=== PATIENT | female | born 1960 | race Caucasian/White ===

== ENCOUNTER 2018-04-30 15:16 | Inpatient (IN) | payer BC ==
[~2018-04-30] VITALS: Ht 157.5 cm; Wt 78.0 kg
[2018-04-30] MEDS ORDERED: HYDROcodone/APAP 5/325MG 1 TAB TABLET PO ONE (15:45)
--- NOTE | 2018-04-30 16:05 | RAD ---
Three-view left knee dated 04/30/2018. No comparison available. Clinical data indication: Pain after injury. FINDINGS: 3 views of left knee show complete transverse fracture through the patella with approximately 3.2 cm distraction of the fracture fragments. Wavy appearance of the patellar tendon with some retraction of the quadriceps tendon. No apparent joint effusion. No intra-articular loose body. The distal femur and proximal tibia are intact. Mild tricompartmental degenerative change. Mild degenerative change of the proximal tibiofibular joint. IMPRESSION: 1. Complete transverse fracture through the mid aspect of the patella with 3.2 cm distraction of the fracture fragments. 2. Mild tricompartmental degenerative arthrosis. Electronically signed by: Cayetano Lott MD (04/30/2018 4:01 PM) [facility]
--- NOTE | 2018-04-30 16:28 | PHYS DOC ---
Past Medical History Past Medical History: Diabetes-Type II, Hypertension, Renal Disease Past Surgical History: Cholecystectomy, Hysterectomy Additional Past Surgical Histo: BACK, L knee patella fx Alcohol Use: None Drug Use: None Adult General Chief Complaint Chief Complaint: KNEE INJURY HPI HPI Patient is a 57 year old female who presents to the emergency room with complaints of left knee pain after she missed a step and fell approximately 30 minutes prior to arrival. Patient states she feels like her knee is broken. She denies any numbness, tingling, or weakness of the extremity. She states that it hurts if she bends her knee. He has not been able to bear weight on the affected extremity since the injury. Currently she reports her pain is 10 out of 10 if her knee is moved. Patient states that she previously fractured her left knee over 20 years ago. Review of Systems Review of Systems Constitutional: Denies fever or chills [] Musculoskeletal: Denies back pain reports left knee pain Integument: Denies rash or skin lesions [] Neurologic: Denies focal weakness or sensory changes [] Current Medications Current Medications Current Medications Medications (Trade) Dose Ordered Sig/Francis Start Time Stop Time Status Last Admin Dose Admin Acetaminophen/ Hydrocodone Bitart (Lortab 5/325) 1 tab 1X ONCE 04/30/18 15:45 04/30/18 15:46 DC 04/30/18 16:03 1 TAB Allergies Allergies Physical Exam Physical Exam Constitutional: Well developed, well nourished, mild distress, non-toxic appearance. [] HENT: Normocephalic, atraumatic, bilateral external ears normal, nose normal. [ ] Eyes: PERRLA, conjunctiva normal, no discharge. [] Lungs & Thorax: Respirations even and unlabored Skin: Warm, dry, no erythema, no rash. [] Extremities: No cyanosis, no clubbing; left patella tender to palpation with 2+ edema present, limited range of motion of the left knee due to pain and injury, palpable strong pedal and posterior tibial pulses and left lower extremity Neurologic: Alert and oriented X 3, normal motor function, normal sensory function, no focal deficits noted. [] Psychologic: Affect normal, judgement normal, mood normal. [] Current Patient Data Vital Signs Vital Signs Date Time Temp Pulse Resp B/P (MAP) Pulse Ox O2 Delivery O2 Flow Rate FiO2 04/30/18 15:33 98.1 85 20 168/77 (107) 99 Room Air 98.1 EKG EKG [] Radiology/Procedures Radiology/Procedures IMAGING REPORT Signed PATIENT: ADRIANA RODRIGUEZ ACCOUNT: [id number] : 1960 LOCATION: ER AGE: 57 SEX: F EXAM STATUS: PRE ER ORD. PHYSICIAN: SANGEETA ORTEGA APRN REASON: fall PROCEDURE: KNEE LEFT 3V Three-view left knee dated 04/30/2018. No comparison available. Clinical data indication: Pain after injury. FINDINGS: 3 views of left knee show complete transverse fracture through the patella with approximately 3.2 cm distraction of the fracture fragments. Wavy appearance of the patellar tendon with some retraction of the quadriceps tendon. No apparent joint effusion. No intra-articular loose body. The distal femur and proximal tibia are intact. Mild tricompartmental degenerative change. Mild degenerative change of the proximal tibiofibular joint. IMPRESSION: 1. Complete transverse fracture through the mid aspect of the patella with 3.2 cm distraction of the fracture fragments. 2. Mild tricompartmental degenerative arthrosis. Electronically signed by: Cayetano Lott MD (04/30/2018 4:01 PM) [facility] DICTATED and SIGNED BY: CAYETANO LOTT MD DATE: 04/30/18 1559 [] Course & Med Decision Making Course & Med Decision Making Pertinent Labs and Imaging studies reviewed. (See chart for details) Patient is a 57-year-old female who presented to the emergency room today with complaints of left knee pain after a fall at approximately 30 minutes prior to arrival. Her vital signs are stable. Patient was given hydrocodone for pain in the department. An x-ray of the left knee revealed a transverse fracture of the left patella. Dr. Zeng was contacted, will admit patient for surgical correction of the fracture. Dr. Bergman was contacted and the patient was admitted for left patella fracture. [] Dragon Disclaimer Dragon Disclaimer This electronic medical record was generated, in whole or in part, using a voice recognition dictation system. Departure Departure Referrals: UNKNOWN PCP NAME (PCP) Scripts Hydrocodone Bit/Acetaminophen (HYDROCODONE-APAP 7.5-325 ) 1 Each Tablet 1 TAB PO PRN Q4HRS PRN for PAIN MODERATE for 10 Days, #30 TAB Prov: CESARIO LAUREANO MD 05/02/18 SANGEETA ORTEGA APRN Apr 30, 2018 16:28
[2018-04-30] MEDS ORDERED: ONDANSETRON PF 4 MG/2 ML VIAL. IV PRN (17:15)
[2018-04-30 18:00] VITALS: BP 158/86
[2018-04-30] MEDS ORDERED: INSU200I4 SQ (18:22)
[2018-04-30] MEDS ORDERED: LISI-334 PO (18:22)
[2018-04-30] MEDS ORDERED: HYDR12.58 PO (18:22)
[2018-04-30] MEDS ORDERED: AMLO5TAB2 PO (18:22)
[2018-04-30] MEDS ORDERED: ATORVASTATIN CA80 MG PO (18:22)
[2018-04-30] MEDS ORDERED: LOPE2CAP88 PO (18:22)
[2018-04-30] MEDS ORDERED: METF500T5 PO (18:22)
[2018-04-30 19:51] VITALS: BP 154/54
--- NOTE | 2018-04-30 20:34 | HP ---
ADMIT DATE: 04/30/2018 CHIEF COMPLAINT: Fall with left knee pain. HISTORY OF PRESENT ILLNESS: The patient is a pleasant 57-year-old female who stepped off a concrete step. She missed a step and fell to her left knee. She struck her knee. It is now hurting badly, we x-rayed it. It is fractured. We have called Dr. Zeng. He plans to do surgery tomorrow. I discussed the case with the ER physician and the family as well. The patient is now being examined on orthopedics floor. PAST MEDICAL HISTORY: Previous patellar fracture of the same knee, diabetes, hypertension, hyperlipidemia, hysterectomy, chronic renal insufficiency, cholecystectomy, back surgeries. ALLERGIES: PENICILLIN. FAMILY HISTORY: Diabetes. SOCIAL HISTORY: She does not drink, smoke or take drugs. She lives in [place]. She is here visiting. She is trying to get custody of her grandson. She is supposed to be in court tomorrow. MEDICATIONS: Reviewed, please refer to the MRAD. REVIEW OF SYSTEMS: GENERAL: No history of weight change, weakness or fevers. SKIN: No bruising, hair changes or rashes. EYES: No blurred, double or loss of vision. NOSE AND THROAT: No history of nosebleeds, hoarseness or sore throat. HEART: No history of palpitations, chest pain or shortness of breath on exertion. LUNGS: Denies cough, hemoptysis, wheezing or shortness of breath. GASTROINTESTINAL: Denies changes in appetite, nausea, vomiting, diarrhea or constipation. GENITOURINARY: No history of frequency, urgency, hesitancy or nocturia. NEUROLOGIC: Denies history of numbness, tingling, tremor or weakness. PSYCHIATRIC: No history of panic, anxiety or depression. ENDOCRINE: No history of heat or cold intolerance, polyuria or polydipsia. EXTREMITIES: She complains of left leg pain. PHYSICAL EXAMINATION: VITAL SIGNS: Temperature afebrile, pulse 80, respirations 20, blood pressure 168/77, O2 sat 99% on room air. GENERAL: She is alert, cooperative, has multiple family members present. They are good support for her. HEART: Normal S1, S2. LUNGS: Clear to auscultation. ABDOMEN: Soft. EXTREMITIES: The left knee is in a brace. ENDOCRINE: No thyromegaly. LYMPHATICS: No cervical nodes. HEMATOPOIETIC: No bruising. LABORATORY DATA: Pending other than a glucose of . ASSESSMENT AND PLAN: Fall with left patellar fracture. The patient has been admitted. We will consult Orthopedics. Resume her home meds, p.r.n. narcotics, p.r.n. Zofran, IV fluids. Left knee brace. Await surgery tomorrow. Postoperatively, she is going to need aggressive physical therapy and occupational therapy. CASSIA JONES DO DR: GABBY/aneesh JOB#: [id number] / [id number]
[2018-04-30 23:00] VITALS: BP 180/69
[2018-05-01] MEDS ORDERED: INSULIN LISPRO 300 UNITS/3 ML INSULN.PEN. SQ ONE ×2 (00:15→19:45)
[2018-05-01] MEDS ORDERED: LOPERAMIDE 2 MG CAPSULE PO SCH (01:00)
[2018-05-01 03:00] VITALS: BP 154/76
[2018-05-01 07:00] VITALS: BP 181/76
[2018-05-01] MEDS ORDERED: IV RINGERS,LACTATED 1000ML 1,000 ML IV SCH (07:20)
[2018-05-01] MEDS ORDERED: LIDOCAINE 1% PF 2 ML VIAL. ID PRN (07:30)
[2018-05-01] MEDS ORDERED: HYDROmorphone 2 MG/ML VIAL IV PRN (07:30)
[2018-05-01] MEDS ORDERED: ONDANSETRON PF 4 MG/2 ML VIAL. IV PRN (07:30)
[2018-05-01] MEDS ORDERED: PROCHLORPERAZINE 10 MG/2 ML VIAL. IV PRN (07:30)
[2018-05-01] MEDS ORDERED: fentaNYL PF VIAL 100 MCG/2 ML VIAL IV PRN ×3 (07:30→14:30)
[2018-05-01] MEDS ORDERED: MORPHINE SULFATE 2 MG/ML VIAL. IV PRN ×2 (07:30→14:30)
[2018-05-01] MEDS ORDERED: metFORMIN 500 MG TABLET PO SCH (08:00)
[2018-05-01] MEDS: LISINOPRIL 20 MG TABLET PO SCH (08:19)
[2018-05-01] MEDS: amLODIPine BESYLATE 5 MG TABLET PO SCH (08:20)
[2018-05-01] MEDS: hydroCHLOROthiazide 12.5 MG CAPSULE PO SCH (08:22)
[2018-05-01] MEDS: HYDROcodone/APAP 5/325MG 1 TAB TABLET PO PRN ×2 (08:26→22:36)
--- NOTE | 2018-05-01 10:28 | PDOC2 ---
CONSULT Date of Consult Date of Consult DATE: 05/01/18 TIME: 10:12 Reason for Consult Reason for Consult: patella fracture Identification/Chief Complaint Chief Complaint left knee pain, patella fracture Source Source: Chart review, Patient History of Present Illness Reason for Visit: This 57-year-old woman normally lives in [place] but was visiting her sister in [place], and fell in her sister's garage yesterday. She landed directly on the patella, she knew it was broken based on the gap that formed. She was unable to walk. She was seen in the emergency room and admitted. She has a history of prior patella fracture 20-25 years ago which was treated nonoperatively. Ever since that remote injury she has had patella crepitus, some difficulty with stairs, but does not use a cane or a walker and is able to stand for long periods of time at work. 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 Her works for the [employer] in [place]. Her main complaint is of pain, inability to walk, and some cramping in the thigh muscle. Past Medical History Past Medical History Hypertension, diabetes, chronic kidney disease stage III, neuropathy. She has had type 2 diabetes for >10 years and is now on insulin including Tresiba. Neuropathy and poor balance likely related to the diabetes. Cardiovascular: HTN GI: Other (history of diarrhea which was worked up with the GI doctor but not able to be diagnosed. She still sees her GI doctor but the diarrhea has essentially resolved.) Renal/: Chronic renal insuff Endocrine: Diabetes Past Surgical History Past Surgical History Back surgery was 20 years ago, hysterectomy, cholecystectomy about 5 years ago, history of laser retinal surgery Past Surgical History: Cholecystectomy, Hysterectomy Family History Family History: Cancer, Diabetes Social History Social History She quit smoking 8 years ago. She quit alcohol about 10 years ago. She denied street drug use. She works for a [employer], and lives with her in [place]. Quit ALCOHOL: none Drugs: None Lives: with Family Current Medications Current Medications Current Medications Acetaminophen/ Hydrocodone Bitart (Lortab 5/325) 1 tab 1X ONCE PO Last administered on 04/30/18at 16:03; Start 04/30/18 at 15:45; Stop 04/30/18 at 15:46 ; Status DC Ondansetron HCl (Zofran) 4 mg PRN Q8HRS PRN IV NAUSEA/VOMITING; Start 04/30/18 at 17:15; Stop 05/01/18 at 17:14 Morphine Sulfate (Morphine Sulfate) 4 mg PRN Q2HR PRN IV PAIN; Start 04/30/18 at 17:15; Stop 05/01/18 at 17:14 Insulin Human Lispro (HumaLOG) 4 units ONCE ONCE SQ ; Start 05/01/18 at 00:15; Stop 05/01/18 at 00:16; Status DC Amlodipine Besylate (Norvasc) 5 mg DAILY PO Last administered on 05/01/18at 08: 20; Start 05/01/18 at 09:00 Lisinopril (Prinivil) 20 mg DAILY PO Last administered on 05/01/18at 08:19; Start 05/01/18 at 09:00 Atorvastatin Calcium (Lipitor) 80 mg HS PO ; Start 05/01/18 at 21:00 Hydrochlorothiazide (Microzide) 25 mg DAILY PO Last administered on 05/01/18at 08:22; Start 05/01/18 at 09:00 Insulin Glargine (Lantus) 30 units QHS SQ ; Start 05/01/18 at 21:00 Loperamide HCl (Imodium) 2 mg PRN Q6HRS PO ; Start 05/01/18 at 01:00 Metformin HCl (Glucophage) 500 mg BIDWMEALS PO ; Start 05/01/18 at 08:00 Acetaminophen/ Hydrocodone Bitart (Lortab 5/325) 1 tab PRN Q4HRS PRN PO PAIN Last administered on 05/01/18at 08:26; Start 05/01/18 at 01:00 Ondansetron HCl (Zofran) 4 mg PRN Q6HRS PRN IV NAUSEA/VOMITING; Start 05/01/18 at 07:30; Stop 05/02/18 at 07:29 Fentanyl Citrate (Fentanyl 2ml Vial) 25 mcg PRN Q5MIN PRN IV MILD PAIN; Start 05/01/18 at 07:30; Stop 05/02/18 at 07:29 Fentanyl Citrate (Fentanyl 2ml Vial) 50 mcg PRN Q5MIN PRN IV MODERATE TO SEVERE PAIN; Start 05/01/18 at 07:30; Stop 05/02/18 at 07:29 Morphine Sulfate (Morphine Sulfate) 1 mg PRN Q10MIN PRN IV SEVERE PAIN; Start 05/01/18 at 07:30; Stop 05/02/18 at 07:29 Ringer's Solution 1,000 ml @ 30 mls/hr Q24H IV ; Start 05/01/18 at 07:20; Stop 05/01/18 at 19:19 Lidocaine HCl (Xylocaine-Mpf 1% 2ml Vial) 2 ml PRN 1X PRN ID PRIOR TO IV START ; Start 05/01/18 at 07:30; Stop 05/02/18 at 07:29 Hydromorphone HCl (Dilaudid) 0.5 mg PRN Q10MIN PRN IV SEV PAIN, Second choice; Start 05/01/18 at 07:30; Stop 05/02/18 at 07:29 Prochlorperazine Edisylate (Compazine) 5 mg PACU PRN PRN IV NAUSEA, MRX1; Start 05/01/18 at 07:30; Stop 05/02/18 at 07:29 Active Scripts Active Reported Imodium A-D (Loperamide HCl) 2 Mg Capsule 2 Mg PO PRN Q6HRS Tresiba Flextouch U-200 (Insulin Degludec) 200 Unit/1 Ml Insuln.pen 30 Unit SQ HS Lisinopril 20 Mg Tablet 1 Tab PO DAILY Metformin Hcl 500 Mg Tablet 500 Mg PO BIDWMEALS Atorvastatin Calcium 80 Mg Tablet 1 Tab PO DAILY Amlodipine Besylate 5 Mg Tablet 5 Mg PO DAILY Hydrochlorothiazide Tablet (Hydrochlorothiazide) 12.5 Mg Tablet 2 Tab PO DAILY Allergies Allergies: Coded Allergies: Penicillins (Verified Allergy, Severe, throat closes, 04/30/18) ROS General: No: Night Sweats, Fatigue, Malaise PSYCHOLOGICAL ROS: No: Anxiety Eyes: Yes Other (laser retina surgery) HEENT: No: Heacaches Hematological and Lymphatic: No: Blood Clots Respiratory: No: Cough, Shortness of breath Cardiovascular: No Chest Pain Gastrointestinal: Yes Diarrhea Genitourinary: No Dysuria Musculoskeletal: Yes Gait Disturbance Neurological: No Bowel/Bladder ControlChng Skin: No Skin Lesion Changes Physical Exam General: Alert, Cooperative HEENT: Atraumatic Lungs: Normal air movement Heart: Regular rate Abdomen: Soft Extremities: No edema, Other (palpable defect left patella. Small abrasion, very superficial, over the patella, skin intact otherwise over the fracture. Calf is soft and nontender. Foot/ankle neurovascular function is normal.) Neuro: Normal speech, Sensation intact (she reports slightly decreased sensation due to neuropathy but no change after the fall, she is at her baseline sensation.) MUSCULOSKELETAL: Abnormal exam of left (knee as above. Trace effusion. Inability to extend the knee. Palpable defect at the patella. The right lower extremity and bilateral upper extremities show normal alignment, sensation, without crepitus or tenderness or deformity. Sensation and motor function normal distally in all 4 extremities, except for slight decreased light touch sensation bilateral feet due to neuropathy.) Vitals VITALS Vital Signs Date Time Temp Pulse Resp B/P (MAP) Pulse Ox O2 Delivery O2 Flow Rate FiO2 05/01/18 08:26 Room Air 05/01/18 08:20 84 181/76 05/01/18 07:00 98.4 18 96 98.4 Labs Labs Laboratory Tests Test 04/30/18 18:11 04/30/18 20:44 05/01/18 07:33 Glucose (Fingerstick) 217 mg/dL (70-99) 295 mg/dL (70-99) 195 mg/dL (70-99) Laboratory Tests Test 04/30/18 18:11 04/30/18 20:44 05/01/18 07:33 Glucose (Fingerstick) 217 mg/dL (70-99) 295 mg/dL (70-99) 195 mg/dL (70-99) Images Images Report reviewed, images independently reviewed. Displaced left patella fracture. Mild degenerative changes. Horizontal fracture. I don't see evidence of the old fracture. Accession No. : [id number] Patient Name / ID : WING WRIGHT / [id number] Exam Date : 04/30/2018 15:38:11 ( Approved ) Study Comment : Sex / Age : F / 57Y Creator : Dictator : Director Of Reservations : Gifts Officer : CAYETANO LOTT Approver2 : Report Date : 04/30/2018 15:59:00 My Comment : [facility] [address] [place] [address] IMAGING REPORT Signed PATIENT: ADRIANA RODRIGUEZ ACCOUNT: [id number] : 1960 LOCATION: ER AGE: 57 SEX: F EXAM STATUS: PRE ER ORD. PHYSICIAN: SANGEETA ORTEGA APRN REASON: fall PROCEDURE: KNEE LEFT 3V Three-view left knee dated 04/30/2018. No comparison available. Clinical data indication: Pain after injury. FINDINGS: 3 views of left knee show complete transverse fracture through the patella with approximately 3.2 cm distraction of the fracture fragments. Wavy appearance of the patellar tendon with some retraction of the quadriceps tendon. No apparent joint effusion. No intra-articular loose body. The distal femur and proximal tibia are intact. Mild tricompartmental degenerative change. Mild degenerative change of the proximal tibiofibular joint. IMPRESSION: 1. Complete transverse fracture through the mid aspect of the patella with 3.2 cm distraction of the fracture fragments. 2. Mild tricompartmental degenerative arthrosis. Electronically signed by: Cayetano Lott MD (04/30/2018 4:01 PM) [facility] DICTATED and SIGNED BY: CAYETANO LOTT MD DATE: 04/30/18 1559 Assessment/Plan Assessment/Plan I recommended open treatment with internal fixation of the patella fracture. We talked about potential risks of that. Nonoperative treatment for this is unlikely to give a satisfactory result, and I explained that to the patient and her sisters. We discussed the potential risks of displacement of the fracture, need for hardware removal, bleeding, infection, scarring, or blood clots. She has multiple risks of blood clots due to fracture, bracing, immobility, surgery , and travel. She plans to return to [place] tomorrow. I will recommend DVT prophylaxis, probably 1 aspirin twice a day, despite her CKD. I will also prescribe a dose of Lovenox tomorrow before she leaves the hospital, so she is further protected during her airline flight tomorrow. She reports some metal sensitivity, and we will use titanium screws. I spoke to her about augmentation fixation using #5 FiberWire Krakw suture in the distal quadriceps tendon, attached to a cortical screws and the tibia for additional fixation. She stated understanding of the risks benefits and alternatives of surgery and desires to proceed. MARIBEL GAMBINO MD May 01, 2018 10:28
[2018-05-01] MEDS ORDERED: MIDAZOLAM HCL/PF 2 MG/2 ML VIAL. ONE (11:04)
[2018-05-01] MEDS ORDERED: fentaNYL PF VIAL 250 MCG/5 ML VIAL ONE (11:04)
[2018-05-01] MEDS ORDERED: PROPOFOL 20 ML IV ONE (11:04)
[2018-05-01] MEDS ORDERED: LIDOCAINE 2% PF Vial for OR 5 ML VIAL. ONE (11:04)
[2018-05-01] MEDS ORDERED: BUPIVACAINE-EPI 0.25%-1:200000 50 ML VIAL. ONE (11:08)
--- NOTE | 2018-05-01 12:25 | PDOC ---
PROGRESS NOTES History of Present Illness History of Present Illness ASSESSMENT AND PLAN: ACUTE left patellar fracture. OBESITY admitted. consult Orthopedics. p.r.n. narcotics, p.r.n. Zofran, IV fluids. Left knee brace. Postoperatively, , physical therapy and occupational therapy. Operative Note Date of Procedure: May 01, 2018 Pre-Op Diagnosis: Displaced transverse fracture of left patella, initial encounter for closed fracture S82.032A Post-Op Diagnosis: Same Procedure: Open treatment of patellar fracture with internal fixation, and cerclage variant suture augmentation Surgeon: Harvey Zeng MD Spinning Mule Tender: Quiana Ragland PA-C Anesthesia: General EBL: 100 mL Vitals Vitals Vital Signs Date Time Temp Pulse Resp B/P (MAP) Pulse Ox O2 Delivery O2 Flow Rate FiO2 05/01/18 11:40 98.4 84 15 171/76 96 Room Air 98.4 Physical Exam General: Alert, Oriented X3, Cooperative, moderate distress Heart: Regular rate, Normal S1, Normal S2 Lungs: Clear Abdomen: Soft Extremities: No cyanosis, No edema, Other (palpable defect left patella. Small abrasion, very superficial, over the patella, skin intact otherwise over the fracture. Calf is soft and nontender. Foot/ankle neurovascular function is normal.) Skin: No significant lesion Labs LABS Laboratory Tests Test 04/30/18 18:11 04/30/18 20:44 05/01/18 07:33 05/01/18 11:20 Glucose (Fingerstick) 217 mg/dL (70-99) 295 mg/dL (70-99) 195 mg/dL (70-99) 177 mg/dL (70-99) 25-Hydroxy Vitamin D Total 18.9 ng/mL (30-100) Comment Review of Relevant I have reviewed the following items montrell (where applicable) has been applied. Labs Laboratory Tests Test 04/30/18 18:11 04/30/18 20:44 05/01/18 07:33 05/01/18 11:20 Glucose (Fingerstick) 217 mg/dL (70-99) 295 mg/dL (70-99) 195 mg/dL (70-99) 177 mg/dL (70-99) 25-Hydroxy Vitamin D Total 18.9 ng/mL (30-100) Laboratory Tests Test 04/30/18 18:11 04/30/18 20:44 05/01/18 07:33 05/01/18 11:20 Glucose (Fingerstick) 217 mg/dL (70-99) 295 mg/dL (70-99) 195 mg/dL (70-99) 177 mg/dL (70-99) 25-Hydroxy Vitamin D Total 18.9 ng/mL (30-100) Medications Current Medications Acetaminophen/ Hydrocodone Bitart (Lortab 5/325) 1 tab 1X ONCE PO Last administered on 04/30/18at 16:03; Start 04/30/18 at 15:45; Stop 04/30/18 at 15:46 ; Status DC Ondansetron HCl (Zofran) 4 mg PRN Q8HRS PRN IV NAUSEA/VOMITING; Start 04/30/18 at 17:15; Stop 05/01/18 at 17:14 Morphine Sulfate (Morphine Sulfate) 4 mg PRN Q2HR PRN IV PAIN; Start 04/30/18 at 17:15; Stop 05/01/18 at 17:14 Insulin Human Lispro (HumaLOG) 4 units ONCE ONCE SQ ; Start 05/01/18 at 00:15; Stop 05/01/18 at 00:16; Status DC Amlodipine Besylate (Norvasc) 5 mg DAILY PO Last administered on 05/01/18at 08: 20; Start 05/01/18 at 09:00 Lisinopril (Prinivil) 20 mg DAILY PO Last administered on 05/01/18at 08:19; Start 05/01/18 at 09:00 Atorvastatin Calcium (Lipitor) 80 mg HS PO ; Start 05/01/18 at 21:00 Hydrochlorothiazide (Microzide) 25 mg DAILY PO Last administered on 05/01/18at 08:22; Start 05/01/18 at 09:00 Insulin Glargine (Lantus) 30 units QHS SQ ; Start 05/01/18 at 21:00 Loperamide HCl (Imodium) 2 mg PRN Q6HRS PO ; Start 05/01/18 at 01:00 Metformin HCl (Glucophage) 500 mg BIDWMEALS PO ; Start 05/01/18 at 08:00 Acetaminophen/ Hydrocodone Bitart (Lortab 5/325) 1 tab PRN Q4HRS PRN PO PAIN Last administered on 05/01/18at 08:26; Start 05/01/18 at 01:00 Ondansetron HCl (Zofran) 4 mg PRN Q6HRS PRN IV NAUSEA/VOMITING; Start 05/01/18 at 07:30; Stop 05/02/18 at 07:29 Fentanyl Citrate (Fentanyl 2ml Vial) 25 mcg PRN Q5MIN PRN IV MILD PAIN; Start 05/01/18 at 07:30; Stop 05/02/18 at 07:29 Fentanyl Citrate (Fentanyl 2ml Vial) 50 mcg PRN Q5MIN PRN IV MODERATE TO SEVERE PAIN; Start 05/01/18 at 07:30; Stop 05/02/18 at 07:29 Morphine Sulfate (Morphine Sulfate) 1 mg PRN Q10MIN PRN IV SEVERE PAIN; Start 05/01/18 at 07:30; Stop 05/02/18 at 07:29 Ringer's Solution 1,000 ml @ 30 mls/hr Q24H IV Last administered on 05/01/18at 11:40; Start 05/01/18 at 07:20; Stop 05/01/18 at 19:19 Lidocaine HCl (Xylocaine-Mpf 1% 2ml Vial) 2 ml PRN 1X PRN ID PRIOR TO IV START ; Start 05/01/18 at 07:30; Stop 05/02/18 at 07:29 Hydromorphone HCl (Dilaudid) 0.5 mg PRN Q10MIN PRN IV SEV PAIN, Second choice; Start 05/01/18 at 07:30; Stop 05/02/18 at 07:29 Prochlorperazine Edisylate (Compazine) 5 mg PACU PRN PRN IV NAUSEA, MRX1; Start 05/01/18 at 07:30; Stop 05/02/18 at 07:29 Lidocaine HCl (Lidocaine Pf 2% Vial) 5 ml STK-MED ONCE .ROUTE ; Start 05/01/18 at 11:04; Stop 05/01/18 at 11:05; Status DC Propofol 20 ml @ As Directed STK-MED ONCE IV ; Start 05/01/18 at 11:04; Stop at 11:05; Status DC Fentanyl Citrate (Fentanyl 5ml Vial) 250 mcg STK-MED ONCE .ROUTE ; Start at 11:04; Stop 05/01/18 at 11:05; Status DC Midazolam HCl (Versed) 2 mg STK-MED ONCE .ROUTE ; Start 05/01/18 at 11:04; Stop 05/01/18 at 11:05; Status DC Bupivacaine HCl/ Epinephrine Bitart (Marcaine-Epi 0.25%-1:053651) 50 ml STK-MED ONCE .ROUTE ; Start 05/01/18 at 11:08; Stop 05/01/18 at 12:08; Status DC Active Scripts Active Reported Imodium A-D (Loperamide HCl) 2 Mg Capsule 2 Mg PO PRN Q6HRS Tresiba Flextouch U-200 (Insulin Degludec) 200 Unit/1 Ml Insuln.pen 30 Unit SQ HS Lisinopril 20 Mg Tablet 1 Tab PO DAILY Metformin Hcl 500 Mg Tablet 500 Mg PO BIDWMEALS Atorvastatin Calcium 80 Mg Tablet 1 Tab PO DAILY Amlodipine Besylate 5 Mg Tablet 5 Mg PO DAILY Hydrochlorothiazide Tablet (Hydrochlorothiazide) 12.5 Mg Tablet 2 Tab PO DAILY Vitals/I & O Vital Sign - Last 24 Hours 04/30/18 04/30/18 04/30/18 04/30/18 15:33 18:00 19:51 20:55 Temp 98.1 98.2 98.2 98.1 98.2 98.2 Pulse 85 85 82 Resp 20 16 18 B/P (MAP) 168/77 (107) 158/86 (110) 154/54 (87) Pulse Ox 99 99 95 O2 Delivery Room Air Room Air Room Air Room Air 04/30/18 05/01/18 05/01/18 05/01/18 23:00 03:00 07:00 08:00 Temp 98.8 98.3 98.4 98.8 98.3 98.4 Pulse 85 82 84 Resp 18 18 18 B/P (MAP) 180/69 (106) 154/76 (102) 181/76 (111) Pulse Ox 96 97 96 O2 Delivery Room Air Room Air Room Air Room Air 05/01/18 05/01/18 05/01/18 05/01/18 08:19 08:20 08:26 09:30 Pulse 84 84 B/P (MAP) 181/76 181/76 O2 Delivery Room Air Room Air 05/01/18 11:40 Temp 98.4 98.4 Pulse 84 Resp 15 B/P (MAP) 171/76 Pulse Ox 96 O2 Delivery Room Air Intake and Output 04/30/18 04/30/18 05/01/18 15:00 23:00 07:00 Intake Total 150 ml 0 ml Balance 150 ml 0 ml CESARIO LAUREANO MD May 01, 2018 12:25
[2018-05-01] MEDS ORDERED: CLINDAMYCIN 900MG PREMIX 50 ML IV ONE (12:52)
[2018-05-01 12:55] LABS: CALCIUM 8.4 mg/dL (8.5-10.1); CREATININE 1.8 mg/dL (0.6-1.0); GFR 28.8
[2018-05-01 12:58] LABS: BASO # 0.1 x10^3/uL (0.0-0.2); BASO % 1 % (0-3); EOS # 0.1 x10^3/uL (0.0-0.7); EOS % 1 % (0-3); HEMATOCRIT 27.5 % (36.0-47.0); HEMOGLOBIN 9.1 g/dL (12.0-15.5); LYMPH # 1.6 x10^3/uL (1.0-4.8); LYMPH % 17 % (24-48); MEAN CORPUSCULAR HEMOGLOBIN 30 pg (25-35); MEAN CORPUSCULAR HGB CONC 33 g/dL (31-37); MEAN CORPUSCULAR VOLUME 89 fL (79-100); MONO # 0.7 x10^3/uL (0.0-1.1); MONO % 7 % (0-9); NEUT # 6.7 x10^3uL (1.8-7.7); NEUT % 74 % (31-73); PLATELET COUNT 261 x10^3/uL (140-400); RED BLOOD COUNT 3.08 x10^6/uL (3.50-5.40); RED CELL DISTRIBUTION WIDTH 13.8 % (11.5-14.5)
[2018-05-01] MEDS ORDERED: ONDANSETRON PF 4 MG/2 ML VIAL. ONE (13:30)
[2018-05-01] MEDS ORDERED: DEXAMETHASONE SOD PHOS 20 MG/5 ML VIAL. ONE (13:30)
[2018-05-01] MEDS ORDERED: ePHEDrine PF IN SALINE 50 MG/5 ML DISP.SYRIN IV ONE (13:34)
[2018-05-01] MEDS ORDERED: oxyCODONE IR 5 MG TABLET PO PRN (14:30)
[2018-05-01] MEDS ORDERED: HYDROcodone/APAP 7.5/325MG 1 TAB TABLET PO PRN ×2 (14:30)
[2018-05-01] MEDS ORDERED: MORPHINE SULFATE 4 MG/ML VIAL. IV PRN (14:30)
[2018-05-01] MEDS ORDERED: POLYETHYLENE GLYCOL 3350 17 GM PACKET. PO PRN (14:30)
[2018-05-01] MEDS ORDERED: DEXTROSE 50% 25 GM / 50ML DISP.SYRIN. IV PRN ×2 (14:30→17:45)
--- NOTE | 2018-05-01 14:35 | PDOC4 ---
Operative Note Operative Note Date of Procedure: May 01, 2018 Pre-Op Diagnosis: Displaced transverse fracture of left patella, initial encounter for closed fracture S82.032A Post-Op Diagnosis: Same Procedure: Open treatment of patellar fracture with internal fixation, and cerclage variant suture augmentation Surgeon: Maribel Zeng MD Furnace Mason: Quiana Ragland PA-C Anesthesia: General EBL: 100 mL Specimens Obtained: none Complications: none Drains: none Tourniquet time: 40 minutes Findings: Displaced transverse patella fracture. Poor bone quality. Implants: 4.0 mm titanium cannulated screws with washers x2. 4.0 mm small fragment titanium screws with washers x2. #5 FiberWire suture. Indications for Procedure: The patient is a 57-year-old woman with closed displaced transverse patella fracture after a fall. The patient and I discussed the risks, benefits and alternatives of surgery. I recommended internal fixation. She has a reported sensitivity to metal or nickel, and she requested hypoallergenic fixation. I planned patella fracture repair using titanium 4.0 mm cannulated and small fragment titanium fixation. She and I discussed the potential risks of patella fracture surgery including malunion or nonunion, delayed healing, infection, blood clots, need for hardware removal, patellofemoral arthritis, pain, weakness, stiffness, or other potential surgical or anesthetic competitions. All her questions about surgery were answered and she desired to proceed. Written consent was obtained. Procedure in Detail: The patient was identified in the preoperative holding area. The correct left lower extremity was marked by me. The patient was taken to the operating room where general anesthesia was used. The patient was positioned supine on the operating table. Preoperative antibiotics were given intravenously. A timeout procedure was performed. A tourniquet was applied to the left lower limb. The limb was prepared in sterile fashion with surgical prep solution. Sterile drapes were applied. An Esmarch bandage was used to exsanguinate the limb and the tourniquet was inflated to 350 mmHg. Midline incision was used, and sharp dissection was used with a 10 blade scalpel. Bovie electrocautery was used for hemostasis. Transverse patella fracture was identified with displacement. There was abundant fracture hematoma. Fracture hematoma was cleared with curettes, rongeurs, and irrigation. There was no evidence of a prior fracture that she describes. The fracture was able to be reduced anatomically, by palpating the articular surface and reducing the two fragments with bone clamps. Quiana Ragland PA-C then held the fracture reduced, while I deployed the guidewires for the 4.0 mm cannulated titanium Synthes set. The large image intensifier was used. All of the images were interpreted intraoperatively by me. The guidewires were placed from inferior to superior, crossing the fracture site. Position of the wires was confirmed on the image intensifier. A measuring guide was used, and predrilling was performed of the outer cortex only. I then placed the partially threaded cannulated cancellous screws each with a washer, with adequate fixation and compression across the fracture site. Image intensifier views showed satisfactory reduction and fixation. Palpation of the articular surface showed anatomic reduction. The medial and lateral retinaculum had been torn as part of the injury and was repaired with #1 PDS [id number] sutures. Next I did augmentation fixation due to her poor bone quality. I used 2 #5 FiberWire sutures, one medial, and one lateral, and a running locking Krakw fashion in the medial and lateral distal quadriceps tendon. There were 2 medial suture tails and 2 lateral suture tails. These were brought down to the tibial tubercle, where I placed bicortical screws using a titanium small fragment set. Each of the screws has a washer. I used the screw post to secure the suture tails, for mechanical fixation from the quadriceps tendon to the tibial tubercle , which offloads any tension on the patellar bone repair. The knee was cycled through a range of motion from 0-90 with secure fixation of the patella bone repair, and the majority of tension is held at the quadriceps tendon and the tibial screws. The tourniquet was released. Copious irrigation was used with saline. Bovie electrocautery was used carefully for hemostasis. The skin edges were injected with 0.25% Marcaine with epinephrine. The subcutaneous tissues were closed with 2-0 Vicryl interrupted sutures. Quiana Ragland PA-C my patient care nursing assistant closed the skin with peter. She then applied a sterile dressing. Quiana applied a knee immobilizer. Needle and sponge counts were correct. There were no apparent complications. My postoperative plan would be to keep the knee straight for 2 weeks, and remove the peter at 2 weeks postoperatively. The patient may weight-bear as tolerated in the knee immobilizer, using a walker. At 2 weeks postop, the patient may begin self-directed active flexion and extension exercises out of the brace, but return to the knee immobilizer after the exercises. Continue weightbearing as tolerated in the brace until 6 weeks postop. At 6 weeks postop she may discontinue the brace, and begin physical therapy for range of motion and strengthening and gait training. The patient resides in [place] and has explained that she will arrange follow-up in [place] with an orthopedic surgeon. If her orthopedic surgeon has questions, he/she may call me directly on my cell phone at . My plan for DVT prophylaxis is aspirin 325 mg by mouth twice a day for 4 weeks. I also plan to give her one dose of Lovenox tomorrow prior to hospital discharge, as she plans to fly on an airplane tomorrow. MARIBEL ZENG MD May 01, 2018 14:35
[2018-05-01] MEDS: MORPHINE SULFATE 4 MG/ML VIAL. IV PRN ×2 (14:40→16:34)
--- NOTE | 2018-05-01 15:04 | RAD ---
2 view of left knee dated 05/01/2018. No comparison available. Clinical data indication: Postop patellar fracture. FINDINGS: 2 views of left knee show interval screw fixation of the transverse patella fracture. There is also been screw fixation of the proximal tibia, likely related to patellar tendon repair. Alignment is anatomic. Mild tricompartmental degenerative changes of the knee. Diffuse soft tissue swelling and soft tissue gas. IMPRESSION: Status post ORIF of patellar fracture Electronically signed by: Cayetano Lott MD (05/01/2018 3:01 PM) [id number]
[2018-05-01] MEDS ORDERED: INSULIN LISPRO 100 UNIT/ML 3ML VIAL. SQ ONE (15:15)
[2018-05-01 15:50] VITALS: BP 173/74
[2018-05-01 17:50] VITALS: BP 156/74
[2018-05-01 19:15] VITALS: BP 164/74
[2018-05-01] MEDS: CLINDAMYCIN 900MG PREMIX 50 ML IV SCH (19:25)
[2018-05-01] MEDS: ASPIRIN 325 MG TABLET PO SCH (20:03)
[2018-05-01] MEDS: ONDANSETRON PF 4 MG/2 ML VIAL. IV PRN (20:04)
[2018-05-01] MEDS ORDERED: INSULIN GLARGINE 300 UNITS/3 ML INSULN.PEN. SQ SCH (21:00)
[2018-05-01] MEDS ORDERED: ATORVASTATIN CALCIUM 40 MG TABLET. PO SCH (21:00)
[2018-05-01 23:15] VITALS: BP 144/71
[2018-05-02] MEDS: CLINDAMYCIN 900MG PREMIX 50 ML IV SCH ×2 (00:57→06:26)
[2018-05-02 03:20] VITALS: BP 112/76
[2018-05-02 05:52] LABS: BASO % 0 % (0-3); EOS % 0 % (0-3); HEMATOCRIT 25.2 % (36.0-47.0); HEMOGLOBIN 8.5 g/dL (12.0-15.5); LYMPH # 1.4 x10^3/uL (1.0-4.8); LYMPH % 12 % (24-48); MEAN CORPUSCULAR HEMOGLOBIN 30 pg (25-35); MEAN CORPUSCULAR HGB CONC 34 g/dL (31-37); MEAN CORPUSCULAR VOLUME 89 fL (79-100); MONO # 1.1 x10^3/uL (0.0-1.1); MONO % 9 % (0-9); NEUT # 9.1 x10^3uL (1.8-7.7); NEUT % 79 % (31-73); PLATELET COUNT 243 x10^3/uL (140-400); RED BLOOD COUNT 2.82 x10^6/uL (3.50-5.40); RED CELL DISTRIBUTION WIDTH 13.7 % (11.5-14.5); WHITE BLOOD COUNT 11.6 x10^3/uL (4.0-11.0)
[2018-05-02] MEDS ORDERED: MAGNESIUM HYDROXIDE 2,400 MG/30 ML ORAL.SUSP. PO PRN (06:00)
[2018-05-02] MEDS ORDERED: CLINDAMYCIN 900MG PREMIX 50 ML IV PRN (06:00)
[2018-05-02 06:07] LABS: ALBUMIN 2.3 g/dL (3.4-5.0); ALBUMIN/GLOBULIN RATIO 0.7 (1.0-1.7); CALCIUM 8.3 mg/dL (8.5-10.1); CREATININE 1.7 mg/dL (0.6-1.0); GFR 30.8; POTASSIUM 4.1 mmol/L (3.5-5.1); TOTAL BILIRUBIN 0.2 mg/dL (0.2-1.0); TOTAL PROTEIN 5.8 g/dL (6.4-8.2)
[2018-05-02] MEDS: HYDROcodone/APAP 5/325MG 1 TAB TABLET PO PRN ×2 (06:26→13:48)
[2018-05-02] MEDS: ONDANSETRON PF 4 MG/2 ML VIAL. IV PRN (06:33)
[2018-05-02 07:00] VITALS: BP 148/60
[2018-05-02] MEDS: INSULIN LISPRO 300 UNITS/3 ML INSULN.PEN. SQ SCH ×4 (08:00→12:00)
[2018-05-02] MEDS: hydroCHLOROthiazide 12.5 MG CAPSULE PO SCH (08:48)
[2018-05-02] MEDS: ASPIRIN 325 MG TABLET PO SCH (08:48)
[2018-05-02] MEDS: amLODIPine BESYLATE 5 MG TABLET PO SCH (08:49)
[2018-05-02] MEDS: LISINOPRIL 20 MG TABLET PO SCH (08:49)
[2018-05-02] MEDS: ENOXAPARIN 40 MG/0.4 ML SYRINGE. SQ SCH ×2 (08:50→08:57)
[2018-05-02] MEDS ORDERED: SENNOSIDES/DOCUSATE 8.6/50MG TABLET. PO SCH (09:00)
[2018-05-02] MEDS ORDERED: CHOLECALCIFEROL (VITAMIN D3) 1,000 UNIT TABLET PO SCH (09:00)
[2018-05-02] MEDS ORDERED: ONDANSETRON ODT 4 MG TAB.RAPDIS. PO PRN (10:30)
--- NOTE | 2018-05-02 10:59 | PDOC2 ---
CONSULT Date of Consult Date of Consult DATE: 05/02/18 TIME: 10:56 Reason for Consult Reason for Consult: RENAL FAILURE Referring Physician Referring Physician: ROBERT Identification/Chief Complaint Chief Complaint FALL Source Source: Chart review, Patient History of Present Illness Reason for Visit: THIS IS A 57 YR OLD WITH A FALL AND SUSTAINED A LEFT PATELLAR FX. CR OF 1.7- 1.9. SHE HAS WELL KNOW CKD STAGE 3 DUE TO HTN AND DM II. SHE IS FROM [place] VISITING FAMILY HERE. LABS ARE C/W CKD. NO OTHER HX NOTED Past Medical History Cardiovascular: HTN GI: Other (history of diarrhea which was worked up with the GI doctor but not able to be diagnosed. She still sees her GI doctor but the diarrhea has essentially resolved.) Renal/: Chronic renal insuff Endocrine: Diabetes Past Surgical History Past Surgical History: Cholecystectomy, Hysterectomy Family History Family History: Cancer, Diabetes Social History Quit ALCOHOL: none Drugs: None Lives: with Family Current Medications Current Medications Current Medications Acetaminophen/ Hydrocodone Bitart (Lortab 5/325) 1 tab 1X ONCE PO Last administered on 04/30/18at 16:03; Start 04/30/18 at 15:45; Stop 04/30/18 at 15:46 ; Status DC Ondansetron HCl (Zofran) 4 mg PRN Q8HRS PRN IV NAUSEA/VOMITING; Start 04/30/18 at 17:15; Stop 05/01/18 at 17:14; Status DC Morphine Sulfate (Morphine Sulfate) 4 mg PRN Q2HR PRN IV PAIN Last administered on 05/01/18at 16:34; Start 04/30/18 at 17:15; Stop 05/01/18 at 17:14 ; Status DC Insulin Human Lispro (HumaLOG) 4 units ONCE ONCE SQ ; Start 05/01/18 at 00:15; Stop 05/01/18 at 00:16; Status DC Amlodipine Besylate (Norvasc) 5 mg DAILY PO Last administered on 05/02/18at 08: 49; Start 05/01/18 at 09:00 Lisinopril (Prinivil) 20 mg DAILY PO Last administered on 05/02/18at 08:49; Start 05/01/18 at 09:00 Atorvastatin Calcium (Lipitor) 80 mg HS PO Last administered on 05/01/18at 20:03 ; Start 05/01/18 at 21:00 Hydrochlorothiazide (Microzide) 25 mg DAILY PO Last administered on 05/02/18at 08:48; Start 05/01/18 at 09:00 Insulin Glargine (Lantus) 30 units QHS SQ Last administered on 05/01/18at 20:10 ; Start 05/01/18 at 21:00 Loperamide HCl (Imodium) 2 mg PRN Q6HRS PO ; Start 05/01/18 at 01:00 Metformin HCl (Glucophage) 500 mg BIDWMEALS PO ; Start 05/01/18 at 08:00; Stop 05/01/18 at 15:52; Status DC Acetaminophen/ Hydrocodone Bitart (Lortab 5/325) 1 tab PRN Q4HRS PRN PO PAIN Last administered on 05/02/18at 06:26; Start 05/01/18 at 01:00 Ondansetron HCl (Zofran) 4 mg PRN Q6HRS PRN IV NAUSEA/VOMITING; Start 05/01/18 at 07:30; Stop 05/02/18 at 07:29; Status DC Fentanyl Citrate (Fentanyl 2ml Vial) 25 mcg PRN Q5MIN PRN IV MILD PAIN; Start 05/01/18 at 07:30; Stop 05/02/18 at 07:29; Status DC Fentanyl Citrate (Fentanyl 2ml Vial) 50 mcg PRN Q5MIN PRN IV MODERATE TO SEVERE PAIN Last administered on 05/01/18at 15:30; Start 05/01/18 at 07:30; Stop 05/02/18 at 07:29; Status DC Morphine Sulfate (Morphine Sulfate) 1 mg PRN Q10MIN PRN IV SEVERE PAIN; Start 05/01/18 at 07:30; Stop 05/02/18 at 07:29; Status DC Ringer's Solution 1,000 ml @ 30 mls/hr Q24H IV Last administered on 05/01/18at 11:40; Start 05/01/18 at 07:20; Stop 05/01/18 at 19:19; Status DC Lidocaine HCl (Xylocaine-Mpf 1% 2ml Vial) 2 ml PRN 1X PRN ID PRIOR TO IV START ; Start 05/01/18 at 07:30; Stop 05/02/18 at 07:29; Status DC Hydromorphone HCl (Dilaudid) 0.5 mg PRN Q10MIN PRN IV SEV PAIN, Second choice; Start 05/01/18 at 07:30; Stop 05/02/18 at 07:29; Status DC Prochlorperazine Edisylate (Compazine) 5 mg PACU PRN PRN IV NAUSEA, MRX1; Start 05/01/18 at 07:30; Stop 05/02/18 at 07:29; Status DC Lidocaine HCl (Lidocaine Pf 2% Vial) 5 ml STK-MED ONCE .ROUTE ; Start 05/01/18 at 11:04; Stop 05/01/18 at 11:05; Status DC Propofol 20 ml @ As Directed STK-MED ONCE IV ; Start 05/01/18 at 11:04; Stop at 11:05; Status DC Fentanyl Citrate (Fentanyl 5ml Vial) 250 mcg STK-MED ONCE .ROUTE ; Start at 11:04; Stop 05/01/18 at 11:05; Status DC Midazolam HCl (Versed) 2 mg STK-MED ONCE .ROUTE ; Start 05/01/18 at 11:04; Stop 05/01/18 at 11:05; Status DC Bupivacaine HCl/ Epinephrine Bitart (Marcaine-Epi 0.25%-1:[id number]) 50 ml STK-MED ONCE .ROUTE Last administered on 05/01/18at 13:24; Start 05/01/18 at 11:08; Stop 05/01/18 at 12:08; Status DC Clindamycin Phosphate 50 ml @ As Directed STK-MED ONCE IV ; Start 05/01/18 at 12 :52; Stop 05/01/18 at 12:53; Status DC Clindamycin Phosphate 50 ml @ 100 mls/hr 1X PREOP PRN IV Pre Op Dose Last administered on 05/01/18at 13:07; Start 05/02/18 at 06:00; Stop 05/02/18 at 18:00 Dexamethasone Sodium Phosphate (Decadron) 20 mg STK-MED ONCE .ROUTE ; Start at 13:30; Stop 05/01/18 at 13:31; Status DC Ondansetron HCl (Zofran) 4 mg STK-MED ONCE .ROUTE ; Start 05/01/18 at 13:30; Stop 05/01/18 at 13:31; Status DC Ephedrine Sulfate (ePHEDrine PF IN SALINE SYRINGE) 50 mg STK-MED ONCE IV ; Start 05/01/18 at 13:34; Stop 05/01/18 at 13:35; Status DC Oxycodone HCl (Roxicodone) 5 mg PRN Q3HRS PRN PO PAIN MODERATE; Start 05/01/18 at 14:30 Morphine Sulfate (Morphine Sulfate) 2 mg PRN Q1HR PRN IV PAIN SEVERE; Start at 14:30 Fentanyl Citrate (Fentanyl 2ml Vial) 25 mcg PRN Q1HR PRN IV PAIN SEVERE 2ND CHOICE; Start 05/01/18 at 14:30 Senna/Docusate Sodium (Senna Plus) 1 tab DAILY PO Last administered on at 08:48; Start 05/02/18 at 09:00 Polyethylene Glycol (miraLAX PACKET) 17 gm PRN DAILY PRN PO CONSTIPATION 1ST CHOICE; Start 05/01/18 at 14:30 Vitamin D (Vitamin D3) 2,000 unit DAILY PO Last administered on 05/02/18at 08:48 ; Start 05/02/18 at 09:00 Clindamycin Phosphate 50 ml @ 100 mls/hr Q6H IV Last administered on at 06:26; Start 05/01/18 at 19:00; Stop 05/02/18 at 07:29; Status DC Ondansetron HCl (Zofran) 4 mg PRN Q4HRS PRN IV NAUSEA/VOMITING Last administered on 05/02/18at 06:33; Start 05/01/18 at 14:30 Enoxaparin Sodium (Lovenox 40mg Syringe) 40 mg DAILY SQ Last administered on at 08:50; Start 05/02/18 at 08:00 Aspirin (Ralph Aspirin) 325 mg BID PO Last administered on 05/02/18at 08:48; Start 05/01/18 at 21:00 Magnesium Hydroxide (Milk Of Magnesia) 2,400 mg 1X PRN PRN PO CONSTIPATION; Start 05/02/18 at 06:00; Stop 05/03/18 at 05:59 Bisacodyl (Dulcolax Supp) 10 mg 1X PRN PRN VA CONSTIPATION; Start 05/02/18 at 16:00; Stop 05/03/18 at 15:59 Acetaminophen/ Hydrocodone Bitart (Lortab 7.5/325) 1 tab PRN Q4HRS PRN PO PAIN MODERATE; Start 05/01/18 at 14:30 Morphine Sulfate (Morphine Sulfate) 4 mg PRN Q2HR PRN IV PAIN SEVERE; Start at 14:30 Acetaminophen/ Hydrocodone Bitart (Lortab 7.5/325) 2 tab PRN Q4HRS PRN PO PAIN SEVERE; Start 05/01/18 at 14:30 Dextrose (Dextrose 50%-Water Syringe) 12.5 gm PRN Q15MIN PRN IV SEE COMMENTS; Start 05/01/18 at 14:30 Insulin Human Lispro (HumaLOG VIAL) 3 unit 1X ONCE SQ Last administered on at 15:30; Start 05/01/18 at 15:15; Stop 05/01/18 at 15:18; Status DC Insulin Human Lispro (HumaLOG) 0-5 UNITS TIDWMEALS SQ ; Start 05/02/18 at 08:00 Dextrose (Dextrose 50%-Water Syringe) 12.5 gm PRN Q15MIN PRN IV SEE COMMENTS; Start 05/01/18 at 17:45 Insulin Human Lispro (HumaLOG) 3 units TIDAC SQ Last administered on 05/02/18at 08:57; Start 05/02/18 at 07:30 Insulin Human Lispro (HumaLOG) 3 units 1X ONCE SQ Last administered on at 20:11; Start 05/01/18 at 19:45; Stop 05/01/18 at 19:46; Status DC Ondansetron HCl (Zofran Odt) 4 mg PRN Q6HRS PRN PO NAUSEA/VOMITING Last administered on 05/02/18at 10:33; Start 05/02/18 at 10:30 Active Scripts Active Reported Imodium A-D (Loperamide HCl) 2 Mg Capsule 2 Mg PO PRN Q6HRS Tresiba Flextouch U-200 (Insulin Degludec) 200 Unit/1 Ml Insuln.pen 30 Unit SQ HS Lisinopril 20 Mg Tablet 1 Tab PO DAILY Metformin Hcl 500 Mg Tablet 500 Mg PO BIDWMEALS Atorvastatin Calcium 80 Mg Tablet 1 Tab PO DAILY Amlodipine Besylate 5 Mg Tablet 5 Mg PO DAILY Hydrochlorothiazide Tablet (Hydrochlorothiazide) 12.5 Mg Tablet 2 Tab PO DAILY Allergies Allergies: Coded Allergies: Penicillins (Verified Allergy, Severe, throat closes, 05/01/18) ROS Review of System FULL ROS NEG OTHER THAN OCC NOCTURIA AND KNEE PAIN Physical Exam General: Alert, Oriented X3, Cooperative, No acute distress HEENT: Atraumatic, PERRLA Lungs: Clear to auscultation, Normal air movement Heart: Regular rate, Normal S1, Normal S2, No murmurs Abdomen: Normal bowel sounds, Soft, No tenderness, No hepatosplenomegaly Extremities: No clubbing, No cyanosis Neuro: Normal gait, Normal speech, Cranial nerves 3-12 NL Psych/Mental Status: Mental status NL, Mood NL MUSCULOSKELETAL: No deformity, No swelling Vitals VITALS Vital Signs Date Time Temp Pulse Resp B/P (MAP) Pulse Ox O2 Delivery O2 Flow Rate FiO2 05/02/18 08:50 Room Air 05/02/18 08:49 84 148/60 05/02/18 07:00 98.3 18 95 98.3 05/02/18 06:26 2.0 Labs Labs Laboratory Tests Test 04/30/18 18:11 04/30/18 20:44 05/01/18 07:33 05/01/18 11:20 Glucose (Fingerstick) 217 mg/dL (70-99) 295 mg/dL (70-99) 195 mg/dL (70-99) 177 mg/dL (70-99) White Blood Count 9.0 x10^3/uL (4.0-11.0) Red Blood Count 3.08 x10^6/uL (3.50-5.40) Hemoglobin 9.1 g/dL (12.0-15.5) Hematocrit 27.5 % (36.0-47.0) Mean Corpuscular Volume 89 fL (79-100) Mean Corpuscular Hemoglobin 30 pg (25-35) Mean Corpuscular Hemoglobin Concent 33 g/dL (31-37) Red Cell Distribution Width 13.8 % (11.5-14.5) Platelet Count 261 x10^3/uL (140-400) Neutrophils (%) (Auto) 74 % (31-73) Lymphocytes (%) (Auto) 17 % (24-48) Monocytes (%) (Auto) 7 % (0-9) Eosinophils (%) (Auto) 1 % (0-3) Basophils (%) (Auto) 1 % (0-3) Neutrophils # (Auto) 6.7 x10^3uL (1.8-7.7) Lymphocytes # (Auto) 1.6 x10^3/uL (1.0-4.8) Monocytes # (Auto) 0.7 x10^3/uL (0.0-1.1) Eosinophils # (Auto) 0.1 x10^3/uL (0.0-0.7) Basophils # (Auto) 0.1 x10^3/uL (0.0-0.2) Sodium Level 137 mmol/L (136-145) Potassium Level 5.0 mmol/L (3.5-5.1) Chloride Level 106 mmol/L (98-107) Carbon Dioxide Level 26 mmol/L (21-32) Anion Gap 5 (6-14) Blood Urea Nitrogen 44 mg/dL (7-20) Creatinine 1.8 mg/dL (0.6-1.0) Estimated GFR (Cockcroft-Gault) 28.8 Glucose Level 221 mg/dL (70-99) Calcium Level 8.4 mg/dL (8.5-10.1) 25-Hydroxy Vitamin D Total 18.9 ng/mL (30-100) Test 05/01/18 15:12 05/01/18 16:36 05/01/18 20:02 05/02/18 05:00 Glucose (Fingerstick) 208 mg/dL (70-99) 238 mg/dL (70-99) 236 mg/dL (70-99) White Blood Count 11.6 x10^3/uL (4.0-11.0) Red Blood Count 2.82 x10^6/uL (3.50-5.40) Hemoglobin 8.5 g/dL (12.0-15.5) Hematocrit 25.2 % (36.0-47.0) Mean Corpuscular Volume 89 fL (79-100) Mean Corpuscular Hemoglobin 30 pg (25-35) Mean Corpuscular Hemoglobin Concent 34 g/dL (31-37) Red Cell Distribution Width 13.7 % (11.5-14.5) Platelet Count 243 x10^3/uL (140-400) Neutrophils (%) (Auto) 79 % (31-73) Lymphocytes (%) (Auto) 12 % (24-48) Monocytes (%) (Auto) 9 % (0-9) Eosinophils (%) (Auto) 0 % (0-3) Basophils (%) (Auto) 0 % (0-3) Neutrophils # (Auto) 9.1 x10^3uL (1.8-7.7) Lymphocytes # (Auto) 1.4 x10^3/uL (1.0-4.8) Monocytes # (Auto) 1.1 x10^3/uL (0.0-1.1) Eosinophils # (Auto) 0.0 x10^3/uL (0.0-0.7) Basophils # (Auto) 0.0 x10^3/uL (0.0-0.2) Sodium Level 138 mmol/L (136-145) Potassium Level 4.1 mmol/L (3.5-5.1) Chloride Level 106 mmol/L (98-107) Carbon Dioxide Level 25 mmol/L (21-32) Anion Gap 7 (6-14) Blood Urea Nitrogen 41 mg/dL (7-20) Creatinine 1.7 mg/dL (0.6-1.0) Estimated GFR (Cockcroft-Gault) 30.8 BUN/Creatinine Ratio 24 (6-20) Glucose Level 197 mg/dL (70-99) Calcium Level 8.3 mg/dL (8.5-10.1) Total Bilirubin 0.2 mg/dL (0.2-1.0) Aspartate Amino Transf (AST/SGOT) 18 U/L (15-37) Alanine Aminotransferase (ALT/SGPT) 28 U/L (14-59) Alkaline Phosphatase 89 U/L (46-116) Total Protein 5.8 g/dL (6.4-8.2) Albumin 2.3 g/dL (3.4-5.0) Albumin/Globulin Ratio 0.7 (1.0-1.7) Test 05/02/18 07:37 Glucose (Fingerstick) 160 mg/dL (70-99) Laboratory Tests Test 05/01/18 11:20 05/01/18 15:12 05/01/18 16:36 05/01/18 20:02 White Blood Count 9.0 x10^3/uL (4.0-11.0) Red Blood Count 3.08 x10^6/uL (3.50-5.40) Hemoglobin 9.1 g/dL (12.0-15.5) Hematocrit 27.5 % (36.0-47.0) Mean Corpuscular Volume 89 fL (79-100) Mean Corpuscular Hemoglobin 30 pg (25-35) Mean Corpuscular Hemoglobin Concent 33 g/dL (31-37) Red Cell Distribution Width 13.8 % (11.5-14.5) Platelet Count 261 x10^3/uL (140-400) Neutrophils (%) (Auto) 74 % (31-73) Lymphocytes (%) (Auto) 17 % (24-48) Monocytes (%) (Auto) 7 % (0-9) Eosinophils (%) (Auto) 1 % (0-3) Basophils (%) (Auto) 1 % (0-3) Neutrophils # (Auto) 6.7 x10^3uL (1.8-7.7) Lymphocytes # (Auto) 1.6 x10^3/uL (1.0-4.8) Monocytes # (Auto) 0.7 x10^3/uL (0.0-1.1) Eosinophils # (Auto) 0.1 x10^3/uL (0.0-0.7) Basophils # (Auto) 0.1 x10^3/uL (0.0-0.2) Sodium Level 137 mmol/L (136-145) Potassium Level 5.0 mmol/L (3.5-5.1) Chloride Level 106 mmol/L (98-107) Carbon Dioxide Level 26 mmol/L (21-32) Anion Gap 5 (6-14) Blood Urea Nitrogen 44 mg/dL (7-20) Creatinine 1.8 mg/dL (0.6-1.0) Estimated GFR (Cockcroft-Gault) 28.8 Glucose Level 221 mg/dL (70-99) Glucose (Fingerstick) 177 mg/dL (70-99) 208 mg/dL (70-99) 238 mg/dL (70-99) 236 mg/dL (70-99) Calcium Level 8.4 mg/dL (8.5-10.1) 25-Hydroxy Vitamin D Total 18.9 ng/mL (30-100) Test 05/02/18 05:00 05/02/18 07:37 White Blood Count 11.6 x10^3/uL (4.0-11.0) Red Blood Count 2.82 x10^6/uL (3.50-5.40) Hemoglobin 8.5 g/dL (12.0-15.5) Hematocrit 25.2 % (36.0-47.0) Mean Corpuscular Volume 89 fL (79-100) Mean Corpuscular Hemoglobin 30 pg (25-35) Mean Corpuscular Hemoglobin Concent 34 g/dL (31-37) Red Cell Distribution Width 13.7 % (11.5-14.5) Platelet Count 243 x10^3/uL (140-400) Neutrophils (%) (Auto) 79 % (31-73) Lymphocytes (%) (Auto) 12 % (24-48) Monocytes (%) (Auto) 9 % (0-9) Eosinophils (%) (Auto) 0 % (0-3) Basophils (%) (Auto) 0 % (0-3) Neutrophils # (Auto) 9.1 x10^3uL (1.8-7.7) Lymphocytes # (Auto) 1.4 x10^3/uL (1.0-4.8) Monocytes # (Auto) 1.1 x10^3/uL (0.0-1.1) Eosinophils # (Auto) 0.0 x10^3/uL (0.0-0.7) Basophils # (Auto) 0.0 x10^3/uL (0.0-0.2) Sodium Level 138 mmol/L (136-145) Potassium Level 4.1 mmol/L (3.5-5.1) Chloride Level 106 mmol/L (98-107) Carbon Dioxide Level 25 mmol/L (21-32) Anion Gap 7 (6-14) Blood Urea Nitrogen 41 mg/dL (7-20) Creatinine 1.7 mg/dL (0.6-1.0) Estimated GFR (Cockcroft-Gault) 30.8 BUN/Creatinine Ratio 24 (6-20) Glucose Level 197 mg/dL (70-99) Calcium Level 8.3 mg/dL (8.5-10.1) Total Bilirubin 0.2 mg/dL (0.2-1.0) Aspartate Amino Transf (AST/SGOT) 18 U/L (15-37) Alanine Aminotransferase (ALT/SGPT) 28 U/L (14-59) Alkaline Phosphatase 89 U/L (46-116) Total Protein 5.8 g/dL (6.4-8.2) Albumin 2.3 g/dL (3.4-5.0) Albumin/Globulin Ratio 0.7 (1.0-1.7) Glucose (Fingerstick) 160 mg/dL (70-99) Assessment/Plan Assessment/Plan IMP CKD STAGE 3-CR STABLE AT 1.7-1.8-STABLE AND AT BASELINE LEFT PATELLA FX DM II HTN PLAN CONT SAME NO ACUTE CHANGES SHE WILL FOLLOW WITH HER PHYSICIANS IN [place] WHEN SHE RETURNS REYNALDO CATES MD May 02, 2018 10:59
[2018-05-02 11:00] VITALS: BP 156/68
[2018-05-02] MEDS ORDERED: LOPERAMIDE 2 MG CAPSULE PO PRN (11:30)
--- NOTE | 2018-05-02 11:54 | PDOC ---
PROGRESS NOTES Subjective Subjective Pt states she is doing well today, some soreness in her knee after getting up to weightbear. She has had some nausea - Zofran helps. Objective Vital Signs Vital Signs Date Time Temp Pulse Resp B/P (MAP) Pulse Ox O2 Delivery O2 Flow Rate FiO2 05/02/18 11:00 98.2 95 18 156/68 (97) 96 Room Air 98.2 05/02/18 06:26 2.0 Physical Exam Knee immobilizer intact. Postop dressing clean and dry. Calf soft and nontender with negative Rosalie's sign. Good plantarflexion and dorsiflexion at foot, with no evidence of neurovascular injury. Peripheral pulses and light touch sensation intact. Labs Laboratory Tests Test 04/30/18 18:11 04/30/18 20:44 05/01/18 07:33 05/01/18 11:20 Glucose (Fingerstick) 217 mg/dL (70-99) 295 mg/dL (70-99) 195 mg/dL (70-99) 177 mg/dL (70-99) White Blood Count 9.0 x10^3/uL (4.0-11.0) Red Blood Count 3.08 x10^6/uL (3.50-5.40) Hemoglobin 9.1 g/dL (12.0-15.5) Hematocrit 27.5 % (36.0-47.0) Mean Corpuscular Volume 89 fL (79-100) Mean Corpuscular Hemoglobin 30 pg (25-35) Mean Corpuscular Hemoglobin Concent 33 g/dL (31-37) Red Cell Distribution Width 13.8 % (11.5-14.5) Platelet Count 261 x10^3/uL (140-400) Neutrophils (%) (Auto) 74 % (31-73) Lymphocytes (%) (Auto) 17 % (24-48) Monocytes (%) (Auto) 7 % (0-9) Eosinophils (%) (Auto) 1 % (0-3) Basophils (%) (Auto) 1 % (0-3) Neutrophils # (Auto) 6.7 x10^3uL (1.8-7.7) Lymphocytes # (Auto) 1.6 x10^3/uL (1.0-4.8) Monocytes # (Auto) 0.7 x10^3/uL (0.0-1.1) Eosinophils # (Auto) 0.1 x10^3/uL (0.0-0.7) Basophils # (Auto) 0.1 x10^3/uL (0.0-0.2) Sodium Level 137 mmol/L (136-145) Potassium Level 5.0 mmol/L (3.5-5.1) Chloride Level 106 mmol/L (98-107) Carbon Dioxide Level 26 mmol/L (21-32) Anion Gap 5 (6-14) Blood Urea Nitrogen 44 mg/dL (7-20) Creatinine 1.8 mg/dL (0.6-1.0) Estimated GFR (Cockcroft-Gault) 28.8 Glucose Level 221 mg/dL (70-99) Calcium Level 8.4 mg/dL (8.5-10.1) 25-Hydroxy Vitamin D Total 18.9 ng/mL (30-100) Test 05/01/18 15:12 05/01/18 16:36 05/01/18 20:02 05/02/18 05:00 Glucose (Fingerstick) 208 mg/dL (70-99) 238 mg/dL (70-99) 236 mg/dL (70-99) White Blood Count 11.6 x10^3/uL (4.0-11.0) Red Blood Count 2.82 x10^6/uL (3.50-5.40) Hemoglobin 8.5 g/dL (12.0-15.5) Hematocrit 25.2 % (36.0-47.0) Mean Corpuscular Volume 89 fL (79-100) Mean Corpuscular Hemoglobin 30 pg (25-35) Mean Corpuscular Hemoglobin Concent 34 g/dL (31-37) Red Cell Distribution Width 13.7 % (11.5-14.5) Platelet Count 243 x10^3/uL (140-400) Neutrophils (%) (Auto) 79 % (31-73) Lymphocytes (%) (Auto) 12 % (24-48) Monocytes (%) (Auto) 9 % (0-9) Eosinophils (%) (Auto) 0 % (0-3) Basophils (%) (Auto) 0 % (0-3) Neutrophils # (Auto) 9.1 x10^3uL (1.8-7.7) Lymphocytes # (Auto) 1.4 x10^3/uL (1.0-4.8) Monocytes # (Auto) 1.1 x10^3/uL (0.0-1.1) Eosinophils # (Auto) 0.0 x10^3/uL (0.0-0.7) Basophils # (Auto) 0.0 x10^3/uL (0.0-0.2) Sodium Level 138 mmol/L (136-145) Potassium Level 4.1 mmol/L (3.5-5.1) Chloride Level 106 mmol/L (98-107) Carbon Dioxide Level 25 mmol/L (21-32) Anion Gap 7 (6-14) Blood Urea Nitrogen 41 mg/dL (7-20) Creatinine 1.7 mg/dL (0.6-1.0) Estimated GFR (Cockcroft-Gault) 30.8 BUN/Creatinine Ratio 24 (6-20) Glucose Level 197 mg/dL (70-99) Calcium Level 8.3 mg/dL (8.5-10.1) Total Bilirubin 0.2 mg/dL (0.2-1.0) Aspartate Amino Transf (AST/SGOT) 18 U/L (15-37) Alanine Aminotransferase (ALT/SGPT) 28 U/L (14-59) Alkaline Phosphatase 89 U/L (46-116) Total Protein 5.8 g/dL (6.4-8.2) Albumin 2.3 g/dL (3.4-5.0) Albumin/Globulin Ratio 0.7 (1.0-1.7) Test 05/02/18 07:37 05/02/18 11:37 Glucose (Fingerstick) 160 mg/dL (70-99) 208 mg/dL (70-99) Laboratory Tests Test 05/01/18 15:12 05/01/18 16:36 05/01/18 20:02 05/02/18 05:00 Glucose (Fingerstick) 208 mg/dL (70-99) 238 mg/dL (70-99) 236 mg/dL (70-99) White Blood Count 11.6 x10^3/uL (4.0-11.0) Red Blood Count 2.82 x10^6/uL (3.50-5.40) Hemoglobin 8.5 g/dL (12.0-15.5) Hematocrit 25.2 % (36.0-47.0) Mean Corpuscular Volume 89 fL (79-100) Mean Corpuscular Hemoglobin 30 pg (25-35) Mean Corpuscular Hemoglobin Concent 34 g/dL (31-37) Red Cell Distribution Width 13.7 % (11.5-14.5) Platelet Count 243 x10^3/uL (140-400) Neutrophils (%) (Auto) 79 % (31-73) Lymphocytes (%) (Auto) 12 % (24-48) Monocytes (%) (Auto) 9 % (0-9) Eosinophils (%) (Auto) 0 % (0-3) Basophils (%) (Auto) 0 % (0-3) Neutrophils # (Auto) 9.1 x10^3uL (1.8-7.7) Lymphocytes # (Auto) 1.4 x10^3/uL (1.0-4.8) Monocytes # (Auto) 1.1 x10^3/uL (0.0-1.1) Eosinophils # (Auto) 0.0 x10^3/uL (0.0-0.7) Basophils # (Auto) 0.0 x10^3/uL (0.0-0.2) Sodium Level 138 mmol/L (136-145) Potassium Level 4.1 mmol/L (3.5-5.1) Chloride Level 106 mmol/L (98-107) Carbon Dioxide Level 25 mmol/L (21-32) Anion Gap 7 (6-14) Blood Urea Nitrogen 41 mg/dL (7-20) Creatinine 1.7 mg/dL (0.6-1.0) Estimated GFR (Cockcroft-Gault) 30.8 BUN/Creatinine Ratio 24 (6-20) Glucose Level 197 mg/dL (70-99) Calcium Level 8.3 mg/dL (8.5-10.1) Total Bilirubin 0.2 mg/dL (0.2-1.0) Aspartate Amino Transf (AST/SGOT) 18 U/L (15-37) Alanine Aminotransferase (ALT/SGPT) 28 U/L (14-59) Alkaline Phosphatase 89 U/L (46-116) Total Protein 5.8 g/dL (6.4-8.2) Albumin 2.3 g/dL (3.4-5.0) Albumin/Globulin Ratio 0.7 (1.0-1.7) Test 05/02/18 07:37 05/02/18 11:37 Glucose (Fingerstick) 160 mg/dL (70-99) 208 mg/dL (70-99) Assessment Assessment POD #1 left patella ORIF Plan Plan of Care The patient is from [place] and has a flight home today at 6pm. From an ortho standpoint, she may be discharged today in time for her flight. Postop dressing will be removed and Aquacel Ag dressing will be placed before discharge. Postoperative instructions were explained in detail to the patient and she was provided with copies of her preop and postop x-rays and her op report. She may WBAT with the knee immobilizer intact. No flexion of the knee for the next two weeks. She did get Lovenox this AM and will take aspirin 325mg twice daily for 4 weeks postop for DVT ppx. I advised she continue to take vitamin D. Prescriptions were written for Lortab 5/325 and Zofran. I also wrote a note for the airline to accommodate her. She will contact her PCP when she gets back in town for a referral to an orthopedic surgeon for postoperative care. She will call the office with any questions or concerns. Followup as needed. JADE LOZANO May 02, 2018 11:54
--- NOTE | 2018-05-02 12:59 | PDOC ---
PROGRESS NOTES History of Present Illness History of Present Illness ASSESSMENT AND PLAN: ACUTE left patellar fracture. OBESITY admitted. Orthopedics. ok with d/c p.r.n. narcotics, p.r.n. Zofran, IV fluids. d/c Left knee brace. Postoperatively, , physical therapy and occupational therapy.in [place] Operative Note Date of Procedure: May 01, 2018 Pre-Op Diagnosis: Displaced transverse fracture of left patella, initial encounter for closed fracture S82.032A Post-Op Diagnosis: Same Procedure: Open treatment of patellar fracture with internal fixation, and cerclage variant suture augmentation Surgeon: Harvey Zeng MD Worm Farmer: Quiana Ragland PA-C Anesthesia: General EBL: 100 mL Vitals Vitals Vital Signs Date Time Temp Pulse Resp B/P (MAP) Pulse Ox O2 Delivery O2 Flow Rate FiO2 05/02/18 11:00 98.2 95 18 156/68 (97) 96 Room Air 98.2 05/02/18 06:26 2.0 Physical Exam General: Alert, Oriented X3, Cooperative, No acute distress Heart: Regular rate, Normal S1, Normal S2, No murmurs Lungs: Clear Abdomen: Normal bowel sounds, Soft, No tenderness, No hepatosplenomegaly Extremities: No clubbing, No cyanosis Skin: No significant lesion Labs LABS Laboratory Tests Test 05/01/18 15:12 05/01/18 16:36 05/01/18 20:02 05/02/18 05:00 Glucose (Fingerstick) 208 mg/dL (70-99) 238 mg/dL (70-99) 236 mg/dL (70-99) White Blood Count 11.6 x10^3/uL (4.0-11.0) Red Blood Count 2.82 x10^6/uL (3.50-5.40) Hemoglobin 8.5 g/dL (12.0-15.5) Hematocrit 25.2 % (36.0-47.0) Mean Corpuscular Volume 89 fL (79-100) Mean Corpuscular Hemoglobin 30 pg (25-35) Mean Corpuscular Hemoglobin Concent 34 g/dL (31-37) Red Cell Distribution Width 13.7 % (11.5-14.5) Platelet Count 243 x10^3/uL (140-400) Neutrophils (%) (Auto) 79 % (31-73) Lymphocytes (%) (Auto) 12 % (24-48) Monocytes (%) (Auto) 9 % (0-9) Eosinophils (%) (Auto) 0 % (0-3) Basophils (%) (Auto) 0 % (0-3) Neutrophils # (Auto) 9.1 x10^3uL (1.8-7.7) Lymphocytes # (Auto) 1.4 x10^3/uL (1.0-4.8) Monocytes # (Auto) 1.1 x10^3/uL (0.0-1.1) Eosinophils # (Auto) 0.0 x10^3/uL (0.0-0.7) Basophils # (Auto) 0.0 x10^3/uL (0.0-0.2) Sodium Level 138 mmol/L (136-145) Potassium Level 4.1 mmol/L (3.5-5.1) Chloride Level 106 mmol/L (98-107) Carbon Dioxide Level 25 mmol/L (21-32) Anion Gap 7 (6-14) Blood Urea Nitrogen 41 mg/dL (7-20) Creatinine 1.7 mg/dL (0.6-1.0) Estimated GFR (Cockcroft-Gault) 30.8 BUN/Creatinine Ratio 24 (6-20) Glucose Level 197 mg/dL (70-99) Calcium Level 8.3 mg/dL (8.5-10.1) Total Bilirubin 0.2 mg/dL (0.2-1.0) Aspartate Amino Transf (AST/SGOT) 18 U/L (15-37) Alanine Aminotransferase (ALT/SGPT) 28 U/L (14-59) Alkaline Phosphatase 89 U/L (46-116) Total Protein 5.8 g/dL (6.4-8.2) Albumin 2.3 g/dL (3.4-5.0) Albumin/Globulin Ratio 0.7 (1.0-1.7) Test 05/02/18 07:37 05/02/18 11:37 Glucose (Fingerstick) 160 mg/dL (70-99) 208 mg/dL (70-99) Comment Review of Relevant I have reviewed the following items montrell (where applicable) has been applied. Labs Laboratory Tests Test 04/30/18 18:11 04/30/18 20:44 8/28/18 07:33 05/01/18 11:20 Glucose (Fingerstick) 217 mg/dL (70-99) 295 mg/dL (70-99) 195 mg/dL (70-99) 177 mg/dL (70-99) White Blood Count 9.0 x10^3/uL (4.0-11.0) Red Blood Count 3.08 x10^6/uL (3.50-5.40) Hemoglobin 9.1 g/dL (12.0-15.5) Hematocrit 27.5 % (36.0-47.0) Mean Corpuscular Volume 89 fL (79-100) Mean Corpuscular Hemoglobin 30 pg (25-35) Mean Corpuscular Hemoglobin Concent 33 g/dL (31-37) Red Cell Distribution Width 13.8 % (11.5-14.5) Platelet Count 261 x10^3/uL (140-400) Neutrophils (%) (Auto) 74 % (31-73) Lymphocytes (%) (Auto) 17 % (24-48) Monocytes (%) (Auto) 7 % (0-9) Eosinophils (%) (Auto) 1 % (0-3) Basophils (%) (Auto) 1 % (0-3) Neutrophils # (Auto) 6.7 x10^3uL (1.8-7.7) Lymphocytes # (Auto) 1.6 x10^3/uL (1.0-4.8) Monocytes # (Auto) 0.7 x10^3/uL (0.0-1.1) Eosinophils # (Auto) 0.1 x10^3/uL (0.0-0.7) Basophils # (Auto) 0.1 x10^3/uL (0.0-0.2) Sodium Level 137 mmol/L (136-145) Potassium Level 5.0 mmol/L (3.5-5.1) Chloride Level 106 mmol/L (98-107) Carbon Dioxide Level 26 mmol/L (21-32) Anion Gap 5 (6-14) Blood Urea Nitrogen 44 mg/dL (7-20) Creatinine 1.8 mg/dL (0.6-1.0) Estimated GFR (Cockcroft-Gault) 28.8 Glucose Level 221 mg/dL (70-99) Calcium Level 8.4 mg/dL (8.5-10.1) 25-Hydroxy Vitamin D Total 18.9 ng/mL (30-100) Test 05/01/18 15:12 05/01/18 16:36 05/01/18 20:02 05/02/18 05:00 Glucose (Fingerstick) 208 mg/dL (70-99) 238 mg/dL (70-99) 236 mg/dL (70-99) White Blood Count 11.6 x10^3/uL (4.0-11.0) Red Blood Count 2.82 x10^6/uL (3.50-5.40) Hemoglobin 8.5 g/dL (12.0-15.5) Hematocrit 25.2 % (36.0-47.0) Mean Corpuscular Volume 89 fL (79-100) Mean Corpuscular Hemoglobin 30 pg (25-35) Mean Corpuscular Hemoglobin Concent 34 g/dL (31-37) Red Cell Distribution Width 13.7 % (11.5-14.5) Platelet Count 243 x10^3/uL (140-400) Neutrophils (%) (Auto) 79 % (31-73) Lymphocytes (%) (Auto) 12 % (24-48) Monocytes (%) (Auto) 9 % (0-9) Eosinophils (%) (Auto) 0 % (0-3) Basophils (%) (Auto) 0 % (0-3) Neutrophils # (Auto) 9.1 x10^3uL (1.8-7.7) Lymphocytes # (Auto) 1.4 x10^3/uL (1.0-4.8) Monocytes # (Auto) 1.1 x10^3/uL (0.0-1.1) Eosinophils # (Auto) 0.0 x10^3/uL (0.0-0.7) Basophils # (Auto) 0.0 x10^3/uL (0.0-0.2) Sodium Level 138 mmol/L (136-145) Potassium Level 4.1 mmol/L (3.5-5.1) Chloride Level 106 mmol/L (98-107) Carbon Dioxide Level 25 mmol/L (21-32) Anion Gap 7 (6-14) Blood Urea Nitrogen 41 mg/dL (7-20) Creatinine 1.7 mg/dL (0.6-1.0) Estimated GFR (Cockcroft-Gault) 30.8 BUN/Creatinine Ratio 24 (6-20) Glucose Level 197 mg/dL (70-99) Calcium Level 8.3 mg/dL (8.5-10.1) Total Bilirubin 0.2 mg/dL (0.2-1.0) Aspartate Amino Transf (AST/SGOT) 18 U/L (15-37) Alanine Aminotransferase (ALT/SGPT) 28 U/L (14-59) Alkaline Phosphatase 89 U/L (46-116) Total Protein 5.8 g/dL (6.4-8.2) Albumin 2.3 g/dL (3.4-5.0) Albumin/Globulin Ratio 0.7 (1.0-1.7) Test 05/02/18 07:37 05/02/18 11:37 Glucose (Fingerstick) 160 mg/dL (70-99) 208 mg/dL (70-99) Laboratory Tests Test 05/01/18 15:12 05/01/18 16:36 05/01/18 20:02 05/02/18 05:00 Glucose (Fingerstick) 208 mg/dL (70-99) 238 mg/dL (70-99) 236 mg/dL (70-99) White Blood Count 11.6 x10^3/uL (4.0-11.0) Red Blood Count 2.82 x10^6/uL (3.50-5.40) Hemoglobin 8.5 g/dL (12.0-15.5) Hematocrit 25.2 % (36.0-47.0) Mean Corpuscular Volume 89 fL (79-100) Mean Corpuscular Hemoglobin 30 pg (25-35) Mean Corpuscular Hemoglobin Concent 34 g/dL (31-37) Red Cell Distribution Width 13.7 % (11.5-14.5) Platelet Count 243 x10^3/uL (140-400) Neutrophils (%) (Auto) 79 % (31-73) Lymphocytes (%) (Auto) 12 % (24-48) Monocytes (%) (Auto) 9 % (0-9) Eosinophils (%) (Auto) 0 % (0-3) Basophils (%) (Auto) 0 % (0-3) Neutrophils # (Auto) 9.1 x10^3uL (1.8-7.7) Lymphocytes # (Auto) 1.4 x10^3/uL (1.0-4.8) Monocytes # (Auto) 1.1 x10^3/uL (0.0-1.1) Eosinophils # (Auto) 0.0 x10^3/uL (0.0-0.7) Basophils # (Auto) 0.0 x10^3/uL (0.0-0.2) Sodium Level 138 mmol/L (136-145) Potassium Level 4.1 mmol/L (3.5-5.1) Chloride Level 106 mmol/L (98-107) Carbon Dioxide Level 25 mmol/L (21-32) Anion Gap 7 (6-14) Blood Urea Nitrogen 41 mg/dL (7-20) Creatinine 1.7 mg/dL (0.6-1.0) Estimated GFR (Cockcroft-Gault) 30.8 BUN/Creatinine Ratio 24 (6-20) Glucose Level 197 mg/dL (70-99) Calcium Level 8.3 mg/dL (8.5-10.1) Total Bilirubin 0.2 mg/dL (0.2-1.0) Aspartate Amino Transf (AST/SGOT) 18 U/L (15-37) Alanine Aminotransferase (ALT/SGPT) 28 U/L (14-59) Alkaline Phosphatase 89 U/L (46-116) Total Protein 5.8 g/dL (6.4-8.2) Albumin 2.3 g/dL (3.4-5.0) Albumin/Globulin Ratio 0.7 (1.0-1.7) Test 05/02/18 07:37 05/02/18 11:37 Glucose (Fingerstick) 160 mg/dL (70-99) 208 mg/dL (70-99) Medications Current Medications Acetaminophen/ Hydrocodone Bitart (Lortab 5/325) 1 tab 1X ONCE PO Last administered on 04/30/18at 16:03; Start 04/30/18 at 15:45; Stop 04/30/18 at 15:46 ; Status DC Ondansetron HCl (Zofran) 4 mg PRN Q8HRS PRN IV NAUSEA/VOMITING; Start 04/30/18 at 17:15; Stop 05/01/18 at 17:14; Status DC Morphine Sulfate (Morphine Sulfate) 4 mg PRN Q2HR PRN IV PAIN Last administered on 05/01/18at 16:34; Start 04/30/18 at 17:15; Stop 05/01/18 at 17:14 ; Status DC Insulin Human Lispro (HumaLOG) 4 units ONCE ONCE SQ ; Start 05/01/18 at 00:15; Stop 05/01/18 at 00:16; Status DC Amlodipine Besylate (Norvasc) 5 mg DAILY PO Last administered on 05/02/18at 08: 49; Start 05/01/18 at 09:00 Lisinopril (Prinivil) 20 mg DAILY PO Last administered on 05/02/18at 08:49; Start 05/01/18 at 09:00 Atorvastatin Calcium (Lipitor) 80 mg HS PO Last administered on 05/01/18at 20:03 ; Start 05/01/18 at 21:00 Hydrochlorothiazide (Microzide) 25 mg DAILY PO Last administered on 05/02/18at 08:48; Start 05/01/18 at 09:00 Insulin Glargine (Lantus) 30 units QHS SQ Last administered on 05/01/18at 20:10 ; Start 05/01/18 at 21:00 Loperamide HCl (Imodium) 2 mg PRN Q6HRS PO ; Start 05/01/18 at 01:00; Stop at 11:26; Status DC Metformin HCl (Glucophage) 500 mg BIDWMEALS PO ; Start 05/01/18 at 08:00; Stop 05/01/18 at 15:52; Status DC Acetaminophen/ Hydrocodone Bitart (Lortab 5/325) 1 tab PRN Q4HRS PRN PO MODERATE PAIN Last administered on 05/02/18at 06:26; Start 05/01/18 at 01:00 Ondansetron HCl (Zofran) 4 mg PRN Q6HRS PRN IV NAUSEA/VOMITING; Start 05/01/18 at 07:30; Stop 05/02/18 at 07:29; Status DC Fentanyl Citrate (Fentanyl 2ml Vial) 25 mcg PRN Q5MIN PRN IV MILD PAIN; Start 05/01/18 at 07:30; Stop 05/02/18 at 07:29; Status DC Fentanyl Citrate (Fentanyl 2ml Vial) 50 mcg PRN Q5MIN PRN IV MODERATE TO SEVERE PAIN Last administered on 05/01/18at 15:30; Start 05/01/18 at 07:30; Stop 05/02/18 at 07:29; Status DC Morphine Sulfate (Morphine Sulfate) 1 mg PRN Q10MIN PRN IV SEVERE PAIN; Start 05/01/18 at 07:30; Stop 05/02/18 at 07:29; Status DC Ringer's Solution 1,000 ml @ 30 mls/hr Q24H IV Last administered on 05/01/18at 11:40; Start 05/01/18 at 07:20; Stop 05/01/18 at 19:19; Status DC Lidocaine HCl (Xylocaine-Mpf 1% 2ml Vial) 2 ml PRN 1X PRN ID PRIOR TO IV START ; Start 05/01/18 at 07:30; Stop 05/02/18 at 07:29; Status DC Hydromorphone HCl (Dilaudid) 0.5 mg PRN Q10MIN PRN IV SEV PAIN, Second choice; Start 05/01/18 at 07:30; Stop 05/02/18 at 07:29; Status DC Prochlorperazine Edisylate (Compazine) 5 mg PACU PRN PRN IV NAUSEA, MRX1; Start 05/01/18 at 07:30; Stop 05/02/18 at 07:29; Status DC Lidocaine HCl (Lidocaine Pf 2% Vial) 5 ml STK-MED ONCE .ROUTE ; Start 05/01/18 at 11:04; Stop 05/01/18 at 11:05; Status DC Propofol 20 ml @ As Directed STK-MED ONCE IV ; Start 05/01/18 at 11:04; Stop at 11:05; Status DC Fentanyl Citrate (Fentanyl 5ml Vial) 250 mcg STK-MED ONCE .ROUTE ; Start at 11:04; Stop 05/01/18 at 11:05; Status DC Midazolam HCl (Versed) 2 mg STK-MED ONCE .ROUTE ; Start 05/01/18 at 11:04; Stop 05/01/18 at 11:05; Status DC Bupivacaine HCl/ Epinephrine Bitart (Marcaine-Epi 0.25%-1:[id number]) 50 ml STK-MED ONCE .ROUTE Last administered on 05/01/18at 13:24; Start 05/01/18 at 11:08; Stop 05/01/18 at 12:08; Status DC Clindamycin Phosphate 50 ml @ As Directed STK-MED ONCE IV ; Start 05/01/18 at 12 :52; Stop 05/01/18 at 12:53; Status DC Clindamycin Phosphate 50 ml @ 100 mls/hr 1X PREOP PRN IV Pre Op Dose Last administered on 05/01/18at 13:07; Start 05/02/18 at 06:00; Stop 05/02/18 at 18:00 Dexamethasone Sodium Phosphate (Decadron) 20 mg STK-MED ONCE .ROUTE ; Start at 13:30; Stop 05/01/18 at 13:31; Status DC Ondansetron HCl (Zofran) 4 mg STK-MED ONCE .ROUTE ; Start 05/01/18 at 13:30; Stop 05/01/18 at 13:31; Status DC Ephedrine Sulfate (ePHEDrine PF IN SALINE SYRINGE) 50 mg STK-MED ONCE IV ; Start 05/01/18 at 13:34; Stop 05/01/18 at 13:35; Status DC Oxycodone HCl (Roxicodone) 5 mg PRN Q3HRS PRN PO PAIN MODERATE; Start 05/01/18 at 14:30 Morphine Sulfate (Morphine Sulfate) 2 mg PRN Q1HR PRN IV PAIN MODERATE 1ST CHOICE; Start 05/01/18 at 14:30 Fentanyl Citrate (Fentanyl 2ml Vial) 25 mcg PRN Q1HR PRN IV PAIN SEVERE 2ND CHOICE; Start 05/01/18 at 14:30 Senna/Docusate Sodium (Senna Plus) 1 tab DAILY PO Last administered on at 08:48; Start 05/02/18 at 09:00 Polyethylene Glycol (miraLAX PACKET) 17 gm PRN DAILY PRN PO CONSTIPATION 1ST CHOICE; Start 05/01/18 at 14:30 Vitamin D (Vitamin D3) 2,000 unit DAILY PO Last administered on 05/02/18at 08:48 ; Start 05/02/18 at 09:00 Clindamycin Phosphate 50 ml @ 100 mls/hr Q6H IV Last administered on at 06:26; Start 05/01/18 at 19:00; Stop 05/02/18 at 07:29; Status DC Ondansetron HCl (Zofran) 4 mg PRN Q4HRS PRN IV NAUSEA/VOMITING 1ST CHOICE Last administered on 05/02/18at 06:33; Start 05/01/18 at 14:30 Enoxaparin Sodium (Lovenox 40mg Syringe) 40 mg DAILY SQ Last administered on at 08:50; Start 05/02/18 at 08:00 Aspirin (Ralph Aspirin) 325 mg BID PO Last administered on 05/02/18at 08:48; Start 05/01/18 at 21:00 Magnesium Hydroxide (Milk Of Magnesia) 2,400 mg 1X PRN PRN PO CONSTIPATION; Start 05/02/18 at 06:00; Stop 05/03/18 at 05:59 Bisacodyl (Dulcolax Supp) 10 mg 1X PRN PRN [place] CONSTIPATION; Start 05/02/18 at 16:00; Stop 05/03/18 at 15:59 Acetaminophen/ Hydrocodone Bitart (Lortab 7.5/325) 1 tab PRN Q4HRS PRN PO PAIN MODERATE; Start 05/01/18 at 14:30 Morphine Sulfate (Morphine Sulfate) 4 mg PRN Q2HR PRN IV PAIN SEVERE 1ST CHOICE ; Start 05/01/18 at 14:30 Acetaminophen/ Hydrocodone Bitart (Lortab 7.5/325) 2 tab PRN Q4HRS PRN PO PAIN SEVERE; Start 05/01/18 at 14:30 Dextrose (Dextrose 50%-Water Syringe) 12.5 gm PRN Q15MIN PRN IV SEE COMMENTS; Start 05/01/18 at 14:30 Insulin Human Lispro (HumaLOG VIAL) 3 unit 1X ONCE SQ Last administered on at 15:30; Start 05/01/18 at 15:15; Stop 05/01/18 at 15:18; Status DC Insulin Human Lispro (HumaLOG) 0-5 UNITS TIDWMEALS SQ ; Start 05/02/18 at 08:00 Dextrose (Dextrose 50%-Water Syringe) 12.5 gm PRN Q15MIN PRN IV SEE COMMENTS; Start 05/01/18 at 17:45; Stop 05/02/18 at 11:26; Status DC Insulin Human Lispro (HumaLOG) 3 units TIDAC SQ Last administered on 05/02/18at 08:57; Start 05/02/18 at 07:30 Insulin Human Lispro (HumaLOG) 3 units 1X ONCE SQ Last administered on at 20:11; Start 05/01/18 at 19:45; Stop 05/01/18 at 19:46; Status DC Ondansetron HCl (Zofran Odt) 4 mg PRN Q6HRS PRN PO NAUSEA/VOMITING 1ST CHOICE Last administered on 05/02/18at 10:33; Start 05/02/18 at 10:30 Loperamide HCl (Imodium) 2 mg PRN Q6HRS PRN PO DIARRHEA; Start 05/02/18 at 11: 30 Active Scripts Active Reported Imodium A-D (Loperamide HCl) 2 Mg Capsule 2 Mg PO PRN Q6HRS Tresiba Flextouch U-200 (Insulin Degludec) 200 Unit/1 Ml Insuln.pen 30 Unit SQ HS Lisinopril 20 Mg Tablet 1 Tab PO DAILY Metformin Hcl 500 Mg Tablet 500 Mg PO BIDWMEALS Atorvastatin Calcium 80 Mg Tablet 1 Tab PO DAILY Amlodipine Besylate 5 Mg Tablet 5 Mg PO DAILY Hydrochlorothiazide Tablet (Hydrochlorothiazide) 12.5 Mg Tablet 2 Tab PO DAILY Vitals/I & O Vital Sign - Last 24 Hours 05/01/18 05/01/18 05/01/18 05/01/18 14:25 14:40 14:40 14:55 Temp 97.1 97.1 Pulse 92 92 93 Resp 20 20 20 20 B/P (MAP) 165/61 167/62 171/68 Pulse Ox 100 100 100 100 O2 Delivery Simple Mask Simple Mask Simple Mask O2 Flow Rate 10 10.0 10 10 05/01/18 05/01/18 05/01/18 05/01/18 15:10 15:25 15:30 15:36 Pulse 94 54 Resp 20 20 20 B/P (MAP) 153/75 167/55 Pulse Ox 92 96 96 O2 Delivery Room Air Nasal Cannula Nasal Cannula Nasal Cannula O2 Flow Rate 2 2.0 2 05/01/18 05/01/18 05/01/18 05/01/18 15:50 16:34 17:50 19:15 Temp 97.7 97.7 97.7 97.7 Pulse 96 94 95 Resp 18 B/P (MAP) 173/74 (107) 156/74 (101) 164/74 (104) Pulse Ox 98 98 100 O2 Delivery Nasal Cannula Room Air Nasal Cannula Room Air O2 Flow Rate 2.0 2.0 05/01/18 05/01/18 05/01/18 05/01/18 20:00 22:36 23:15 23:36 Temp 98.3 98.3 Pulse 94 Resp 18 B/P (MAP) 144/71 (95) Pulse Ox 100 97 97 O2 Delivery Nasal Cannula Room Air Room Air O2 Flow Rate 2.0 05/02/18 05/02/18 05/02/18 05/02/18 03:20 06:26 07:00 08:00 Temp 98.1 98.3 98.1 98.3 Pulse 93 84 Resp B/P (MAP) 112/76 (88) 148/60 (89) Pulse Ox 97 97 95 O2 Delivery Room Air Nasal Cannula Room Air Room Air O2 Flow Rate 2.0 05/02/18 05/02/18 05/02/18 05/02/18 08:49 08:49 08:50 11:00 Temp 98.2 98.2 Pulse 84 84 95 Resp 18 B/P (MAP) 148/60 148/60 156/68 (97) Pulse Ox 96 O2 Delivery Room Air Room Air Intake and Output 05/01/18 05/01/18 05/02/18 15:00 23:00 07:00 Intake Total 650 ml 300 ml 540 ml Output Total 100 ml 0 ml Balance 550 ml 300 ml 540 ml CESARIO LAUREANO MD May 02, 2018 12:59
--- NOTE | 2018-05-02 13:02 | PDOC3 ---
Discharge Summary Date of Admission: Apr 30, 2018 Date of Discharge: May 02, 2018 Follow-Up: 1-2 days Admitting Diagnosis comment: discharge diagnosis History of Present Illness ASSESSMENT AND PLAN: ACUTE left patellar fracture. OBESITY admitted. Orthopedics. ok with d/c p.r.n.po narcotics, p.r.n. Zofran, IV fluids. d/c Left knee brace. , crutches Postoperatively, , physical therapy and occupational therapy.in [place] Operative Note Date of Procedure: May 01, 2018 Pre-Op Diagnosis: Displaced transverse fracture of left patella, initial encounter for closed fracture S82.032A Post-Op Diagnosis: Same Procedure: Open treatment of patellar fracture with internal fixation, and cerclage variant suture augmentation Surgeon: Harvey Zeng MD Undergraduate Intern: Quiana Ragland PA-C Anesthesia: General EBL: 100 mL Vitals Vitals Vital Signs Date Time Temp Pulse Resp B/P (MAP) Pulse Ox O2 Delivery O2 Flow Rate FiO2 05/02/18 11:00 98.2 95 18 156/68 (97) 96 Room Air 98.2 05/02/18 06:26 2.0 Physical Exam General: Alert, Oriented X3, Cooperative, No acute distress Heart: Regular rate, Normal S1, Normal S2, No murmurs Lungs: Clear Abdomen: Normal bowel sounds, Soft, No tenderness, No hepatosplenomegaly Extremities: No clubbing, No cyanosis Skin: No significant lesion Brief Hospital Course Ms. Ness is a 57 old [sex] who presented with [patellar fracture ] CONDITION AT DISCHARGE: Improved Discharge Medications Current Medications Acetaminophen/ Hydrocodone Bitart (Lortab 5/325) 1 tab 1X ONCE PO Last administered on 04/30/18at 16:03; Start 04/30/18 at 15:45; Stop 04/30/18 at 15:46 ; Status DC Ondansetron HCl (Zofran) 4 mg PRN Q8HRS PRN IV NAUSEA/VOMITING; Start 04/30/18 at 17:15; Stop 05/01/18 at 17:14; Status DC Morphine Sulfate (Morphine Sulfate) 4 mg PRN Q2HR PRN IV PAIN Last administered on 05/01/18at 16:34; Start 04/30/18 at 17:15; Stop 05/01/18 at 17:14 ; Status DC Insulin Human Lispro (HumaLOG) 4 units ONCE ONCE SQ ; Start 05/01/18 at 00:15; Stop 05/01/18 at 00:16; Status DC Amlodipine Besylate (Norvasc) 5 mg DAILY PO Last administered on 05/02/18at 08: 49; Start 05/01/18 at 09:00 Lisinopril (Prinivil) 20 mg DAILY PO Last administered on 05/02/18at 08:49; Start 05/01/18 at 09:00 Atorvastatin Calcium (Lipitor) 80 mg HS PO Last administered on 05/01/18at 20:03 ; Start 05/01/18 at 21:00 Hydrochlorothiazide (Microzide) 25 mg DAILY PO Last administered on 05/02/18at 08:48; Start 05/01/18 at 09:00 Insulin Glargine (Lantus) 30 units QHS SQ Last administered on 05/01/18at 20:10 ; Start 05/01/18 at 21:00 Loperamide HCl (Imodium) 2 mg PRN Q6HRS PO ; Start 05/01/18 at 01:00; Stop at 11:26; Status DC Metformin HCl (Glucophage) 500 mg BIDWMEALS PO ; Start 05/01/18 at 08:00; Stop 05/01/18 at 15:52; Status DC Acetaminophen/ Hydrocodone Bitart (Lortab 5/325) 1 tab PRN Q4HRS PRN PO MODERATE PAIN Last administered on 05/02/18at 06:26; Start 05/01/18 at 01:00 Ondansetron HCl (Zofran) 4 mg PRN Q6HRS PRN IV NAUSEA/VOMITING; Start 05/01/18 at 07:30; Stop 05/02/18 at 07:29; Status DC Fentanyl Citrate (Fentanyl 2ml Vial) 25 mcg PRN Q5MIN PRN IV MILD PAIN; Start 05/01/18 at 07:30; Stop 05/02/18 at 07:29; Status DC Fentanyl Citrate (Fentanyl 2ml Vial) 50 mcg PRN Q5MIN PRN IV MODERATE TO SEVERE PAIN Last administered on 05/01/18at 15:30; Start 05/01/18 at 07:30; Stop 05/02/18 at 07:29; Status DC Morphine Sulfate (Morphine Sulfate) 1 mg PRN Q10MIN PRN IV SEVERE PAIN; Start 05/01/18 at 07:30; Stop 05/02/18 at 07:29; Status DC Ringer's Solution 1,000 ml @ 30 mls/hr Q24H IV Last administered on 05/01/18at 11:40; Start 05/01/18 at 07:20; Stop 05/01/18 at 19:19; Status DC Lidocaine HCl (Xylocaine-Mpf 1% 2ml Vial) 2 ml PRN 1X PRN ID PRIOR TO IV START ; Start 05/01/18 at 07:30; Stop 05/02/18 at 07:29; Status DC Hydromorphone HCl (Dilaudid) 0.5 mg PRN Q10MIN PRN IV SEV PAIN, Second choice; Start 05/01/18 at 07:30; Stop 05/02/18 at 07:29; Status DC Prochlorperazine Edisylate (Compazine) 5 mg PACU PRN PRN IV NAUSEA, MRX1; Start 05/01/18 at 07:30; Stop 05/02/18 at 07:29; Status DC Lidocaine HCl (Lidocaine Pf 2% Vial) 5 ml STK-MED ONCE .ROUTE ; Start 05/01/18 at 11:04; Stop 05/01/18 at 11:05; Status DC Propofol 20 ml @ As Directed STK-MED ONCE IV ; Start 05/01/18 at 11:04; Stop at 11:05; Status DC Fentanyl Citrate (Fentanyl 5ml Vial) 250 mcg STK-MED ONCE .ROUTE ; Start at 11:04; Stop 05/01/18 at 11:05; Status DC Midazolam HCl (Versed) 2 mg STK-MED ONCE .ROUTE ; Start 05/01/18 at 11:04; Stop 05/01/18 at 11:05; Status DC Bupivacaine HCl/ Epinephrine Bitart (Marcaine-Epi 0.25%-[id number]) 50 ml STK-MED ONCE .ROUTE Last administered on 05/01/18at 13:24; Start 05/01/18 at 11:08; Stop 05/01/18 at 12:08; Status DC Clindamycin Phosphate 50 ml @ As Directed STK-MED ONCE IV ; Start 05/01/18 at 12 :52; Stop 05/01/18 at 12:53; Status DC Clindamycin Phosphate 50 ml @ 100 mls/hr 1X PREOP PRN IV Pre Op Dose Last administered on 05/01/18at 13:07; Start 05/02/18 at 06:00; Stop 05/02/18 at 18:00 Dexamethasone Sodium Phosphate (Decadron) 20 mg STK-MED ONCE .ROUTE ; Start at 13:30; Stop 05/01/18 at 13:31; Status DC Ondansetron HCl (Zofran) 4 mg STK-MED ONCE .ROUTE ; Start 05/01/18 at 13:30; Stop 05/01/18 at 13:31; Status DC Ephedrine Sulfate (ePHEDrine PF IN SALINE SYRINGE) 50 mg STK-MED ONCE IV ; Start 05/01/18 at 13:34; Stop 05/01/18 at 13:35; Status DC Oxycodone HCl (Roxicodone) 5 mg PRN Q3HRS PRN PO PAIN MODERATE; Start 05/01/18 at 14:30 Morphine Sulfate (Morphine Sulfate) 2 mg PRN Q1HR PRN IV PAIN MODERATE 1ST CHOICE; Start 05/01/18 at 14:30 Fentanyl Citrate (Fentanyl 2ml Vial) 25 mcg PRN Q1HR PRN IV PAIN SEVERE 2ND CHOICE; Start 05/01/18 at 14:30 Senna/Docusate Sodium (Senna Plus) 1 tab DAILY PO Last administered on at 08:48; Start 05/02/18 at 09:00 Polyethylene Glycol (miraLAX PACKET) 17 gm PRN DAILY PRN PO CONSTIPATION 1ST CHOICE; Start 05/01/18 at 14:30 Vitamin D (Vitamin D3) 2,000 unit DAILY PO Last administered on 05/02/18at 08:48 ; Start 05/02/18 at 09:00 Clindamycin Phosphate 50 ml @ 100 mls/hr Q6H IV Last administered on at 06:26; Start 05/01/18 at 19:00; Stop 05/02/18 at 07:29; Status DC Ondansetron HCl (Zofran) 4 mg PRN Q4HRS PRN IV NAUSEA/VOMITING 1ST CHOICE Last administered on 05/02/18at 06:33; Start 05/01/18 at 14:30 Enoxaparin Sodium (Lovenox 40mg Syringe) 40 mg DAILY SQ Last administered on at 08:50; Start 05/02/18 at 08:00 Aspirin (Ralph Aspirin) 325 mg BID PO Last administered on 05/02/18at 08:48; Start 05/01/18 at 21:00 Magnesium Hydroxide (Milk Of Magnesia) 2,400 mg 1X PRN PRN PO CONSTIPATION; Start 05/02/18 at 06:00; Stop 05/03/18 at 05:59 Bisacodyl (Dulcolax Supp) 10 mg 1X PRN PRN [place] CONSTIPATION; Start 05/02/18 at 16:00; Stop 05/03/18 at 15:59 Acetaminophen/ Hydrocodone Bitart (Lortab 7.5/325) 1 tab PRN Q4HRS PRN PO PAIN MODERATE; Start 05/01/18 at 14:30 Morphine Sulfate (Morphine Sulfate) 4 mg PRN Q2HR PRN IV PAIN SEVERE 1ST CHOICE ; Start 05/01/18 at 14:30 Acetaminophen/ Hydrocodone Bitart (Lortab 7.5/325) 2 tab PRN Q4HRS PRN PO PAIN SEVERE; Start 05/01/18 at 14:30 Dextrose (Dextrose 50%-Water Syringe) 12.5 gm PRN Q15MIN PRN IV SEE COMMENTS; Start 05/01/18 at 14:30 Insulin Human Lispro (HumaLOG VIAL) 3 unit 1X ONCE SQ Last administered on at 15:30; Start 05/01/18 at 15:15; Stop 05/01/18 at 15:18; Status DC Insulin Human Lispro (HumaLOG) 0-5 UNITS TIDWMEALS SQ ; Start 05/02/18 at 08:00 Dextrose (Dextrose 50%-Water Syringe) 12.5 gm PRN Q15MIN PRN IV SEE COMMENTS; Start 05/01/18 at 17:45; Stop 05/02/18 at 11:26; Status DC Insulin Human Lispro (HumaLOG) 3 units TIDAC SQ Last administered on 05/02/18at 08:57; Start 05/02/18 at 07:30 Insulin Human Lispro (HumaLOG) 3 units 1X ONCE SQ Last administered on at 20:11; Start 05/01/18 at 19:45; Stop 05/01/18 at 19:46; Status DC Ondansetron HCl (Zofran Odt) 4 mg PRN Q6HRS PRN PO NAUSEA/VOMITING 1ST CHOICE Last administered on 05/02/18at 10:33; Start 05/02/18 at 10:30 Loperamide HCl (Imodium) 2 mg PRN Q6HRS PRN PO DIARRHEA; Start 05/02/18 at 11: 30 Active Scripts Active Reported Imodium A-D (Loperamide HCl) 2 Mg Capsule 2 Mg PO PRN Q6HRS Tresiba Flextouch U-200 (Insulin Degludec) 200 Unit/1 Ml Insuln.pen 30 Unit SQ HS Lisinopril 20 Mg Tablet 1 Tab PO DAILY Metformin Hcl 500 Mg Tablet 500 Mg PO BIDWMEALS Atorvastatin Calcium 80 Mg Tablet 1 Tab PO DAILY Amlodipine Besylate 5 Mg Tablet 5 Mg PO DAILY Hydrochlorothiazide Tablet (Hydrochlorothiazide) 12.5 Mg Tablet 2 Tab PO DAILY Vital Signs Vital Signs Date Time Temp Pulse Resp B/P (MAP) Pulse Ox O2 Delivery O2 Flow Rate FiO2 05/02/18 11:00 98.2 95 18 156/68 (97) 96 Room Air 98.2 05/02/18 06:26 2.0 Labs Laboratory Tests Test 04/30/18 18:11 04/30/18 20:44 05/01/18 07:33 05/01/18 11:20 Glucose (Fingerstick) 217 mg/dL (70-99) 295 mg/dL (70-99) 195 mg/dL (70-99) 177 mg/dL (70-99) White Blood Count 9.0 x10^3/uL (4.0-11.0) Red Blood Count 3.08 x10^6/uL (3.50-5.40) Hemoglobin 9.1 g/dL (12.0-15.5) Hematocrit 27.5 % (36.0-47.0) Mean Corpuscular Volume 89 fL (79-100) Mean Corpuscular Hemoglobin 30 pg (25-35) Mean Corpuscular Hemoglobin Concent 33 g/dL (31-37) Red Cell Distribution Width 13.8 % (11.5-14.5) Platelet Count 261 x10^3/uL (140-400) Neutrophils (%) (Auto) 74 % (31-73) Lymphocytes (%) (Auto) 17 % (24-48) Monocytes (%) (Auto) 7 % (0-9) Eosinophils (%) (Auto) 1 % (0-3) Basophils (%) (Auto) 1 % (0-3) Neutrophils # (Auto) 6.7 x10^3uL (1.8-7.7) Lymphocytes # (Auto) 1.6 x10^3/uL (1.0-4.8) Monocytes # (Auto) 0.7 x10^3/uL (0.0-1.1) Eosinophils # (Auto) 0.1 x10^3/uL (0.0-0.7) Basophils # (Auto) 0.1 x10^3/uL (0.0-0.2) Sodium Level 137 mmol/L (136-145) Potassium Level 5.0 mmol/L (3.5-5.1) Chloride Level 106 mmol/L (98-107) Carbon Dioxide Level 26 mmol/L (21-32) Anion Gap 5 (6-14) Blood Urea Nitrogen 44 mg/dL (7-20) Creatinine 1.8 mg/dL (0.6-1.0) Estimated GFR (Cockcroft-Gault) 28.8 Glucose Level 221 mg/dL (70-99) Calcium Level 8.4 mg/dL (8.5-10.1) 25-Hydroxy Vitamin D Total 18.9 ng/mL (30-100) Test 05/01/18 15:12 05/01/18 16:36 05/01/18 20:02 05/02/18 05:00 Glucose (Fingerstick) 208 mg/dL (70-99) 238 mg/dL (70-99) 236 mg/dL (70-99) White Blood Count 11.6 x10^3/uL (4.0-11.0) Red Blood Count 2.82 x10^6/uL (3.50-5.40) Hemoglobin 8.5 g/dL (12.0-15.5) Hematocrit 25.2 % (36.0-47.0) Mean Corpuscular Volume 89 fL (79-100) Mean Corpuscular Hemoglobin 30 pg (25-35) Mean Corpuscular Hemoglobin Concent 34 g/dL (31-37) Red Cell Distribution Width 13.7 % (11.5-14.5) Platelet Count 243 x10^3/uL (140-400) Neutrophils (%) (Auto) 79 % (31-73) Lymphocytes (%) (Auto) 12 % (24-48) Monocytes (%) (Auto) 9 % (0-9) Eosinophils (%) (Auto) 0 % (0-3) Basophils (%) (Auto) 0 % (0-3) Neutrophils # (Auto) 9.1 x10^3uL (1.8-7.7) Lymphocytes # (Auto) 1.4 x10^3/uL (1.0-4.8) Monocytes # (Auto) 1.1 x10^3/uL (0.0-1.1) Eosinophils # (Auto) 0.0 x10^3/uL (0.0-0.7) Basophils # (Auto) 0.0 x10^3/uL (0.0-0.2) Sodium Level 138 mmol/L (136-145) Potassium Level 4.1 mmol/L (3.5-5.1) Chloride Level 106 mmol/L (98-107) Carbon Dioxide Level 25 mmol/L (21-32) Anion Gap 7 (6-14) Blood Urea Nitrogen 41 mg/dL (7-20) Creatinine 1.7 mg/dL (0.6-1.0) Estimated GFR (Cockcroft-Gault) 30.8 BUN/Creatinine Ratio 24 (6-20) Glucose Level 197 mg/dL (70-99) Calcium Level 8.3 mg/dL (8.5-10.1) Total Bilirubin 0.2 mg/dL (0.2-1.0) Aspartate Amino Transf (AST/SGOT) 18 U/L (15-37) Alanine Aminotransferase (ALT/SGPT) 28 U/L (14-59) Alkaline Phosphatase 89 U/L (46-116) Total Protein 5.8 g/dL (6.4-8.2) Albumin 2.3 g/dL (3.4-5.0) Albumin/Globulin Ratio 0.7 (1.0-1.7) Test 05/02/18 07:37 05/02/18 11:37 Glucose (Fingerstick) 160 mg/dL (70-99) 208 mg/dL (70-99) Laboratory Tests Test 05/01/18 15:12 05/01/18 16:36 05/01/18 20:02 05/02/18 05:00 Glucose (Fingerstick) 208 mg/dL (70-99) 238 mg/dL (70-99) 236 mg/dL (70-99) White Blood Count 11.6 x10^3/uL (4.0-11.0) Red Blood Count 2.82 x10^6/uL (3.50-5.40) Hemoglobin 8.5 g/dL (12.0-15.5) Hematocrit 25.2 % (36.0-47.0) Mean Corpuscular Volume 89 fL (79-100) Mean Corpuscular Hemoglobin 30 pg (25-35) Mean Corpuscular Hemoglobin Concent 34 g/dL (31-37) Red Cell Distribution Width 13.7 % (11.5-14.5) Platelet Count 243 x10^3/uL (140-400) Neutrophils (%) (Auto) 79 % (31-73) Lymphocytes (%) (Auto) 12 % (24-48) Monocytes (%) (Auto) 9 % (0-9) Eosinophils (%) (Auto) 0 % (0-3) Basophils (%) (Auto) 0 % (0-3) Neutrophils # (Auto) 9.1 x10^3uL (1.8-7.7) Lymphocytes # (Auto) 1.4 x10^3/uL (1.0-4.8) Monocytes # (Auto) 1.1 x10^3/uL (0.0-1.1) Eosinophils # (Auto) 0.0 x10^3/uL (0.0-0.7) Basophils # (Auto) 0.0 x10^3/uL (0.0-0.2) Sodium Level 138 mmol/L (136-145) Potassium Level 4.1 mmol/L (3.5-5.1) Chloride Level 106 mmol/L (98-107) Carbon Dioxide Level 25 mmol/L (21-32) Anion Gap 7 (6-14) Blood Urea Nitrogen 41 mg/dL (7-20) Creatinine 1.7 mg/dL (0.6-1.0) Estimated GFR (Cockcroft-Gault) 30.8 BUN/Creatinine Ratio 24 (6-20) Glucose Level 197 mg/dL (70-99) Calcium Level 8.3 mg/dL (8.5-10.1) Total Bilirubin 0.2 mg/dL (0.2-1.0) Aspartate Amino Transf (AST/SGOT) 18 U/L (15-37) Alanine Aminotransferase (ALT/SGPT) 28 U/L (14-59) Alkaline Phosphatase 89 U/L (46-116) Total Protein 5.8 g/dL (6.4-8.2) Albumin 2.3 g/dL (3.4-5.0) Albumin/Globulin Ratio 0.7 (1.0-1.7) Test 05/02/18 07:37 05/02/18 11:37 Glucose (Fingerstick) 160 mg/dL (70-99) 208 mg/dL (70-99) Allergies Allergies Coded Allergies Type Severity Reaction Last Updated Verified Penicillins Allergy Severe throat closes 05/01/18 Yes Disposition/Orders: D/C to Home CESARIO LAUREANO MD May 02, 2018 13:02
--- NOTE | 2018-05-02 13:04 | DISCH ---
DISCHARGE INSTRUCTIONS Condition on Discharge Condition on Discharge: Stable Activity After Discharge Activity Instructions for Disc: Activity as tolerated Bathing Instructions: Shower-keep dressing dry Lifting Instructions after Dis: No heavy lifting, No pulling or pushing Driving Instructions after Dis: Do not drive Diet after Discharge Diet after Discharge: Regular Checks after Discharge Checks after discharge: Check blood press - daily Community/Resources/Services Services at Discharge: PT EVALUATE & TREAT, OT Evaluate & Treat Contacting the DR. after DC Call your doctor for: If your condition worsens CESARIO LAUREANO MD May 02, 2018 13:04
[2018-05-02] MEDS ORDERED: HYDR-2762 PO (13:08)
[2018-05-02] MEDS ORDERED: BISACODYL 10 MG SUPP.RECT. PR PRN (16:00)
== END 2018-05-02 14:15 | disposition home health service (06) | DRG 517 ==
LOC: ER 15:16 → 4 NORTH 17:08
PROVIDERS: ADMIT Internal Medicine; ATTEND Internal Medicine
PROC: 0QSF04Z Reposition Left Patella with Internal Fixation Device, Open Approach (ICD-10-PCS; principal; 2018-05-01 12:45)
DX: S82.032A Displaced transverse fracture of left patella, initial encounter for closed fracture (principal); E11.22 Type 2 diabetes mellitus with diabetic chronic kidney disease; E11.40 Type 2 diabetes mellitus with diabetic neuropathy, unspecified; E66.9 Obesity, unspecified; E78.5 Hyperlipidemia, unspecified; I12.9 Hypertensive chronic kidney disease with stage 1 through stage 4 chronic kidney disease, or unspecified chronic kidney disease; M19.90 Unspecified osteoarthritis, unspecified site; N18.3 Chronic kidney disease, stage 3 (moderate); Z83.3 Family history of diabetes mellitus; W10.8XXA Fall (on) (from) other stairs and steps, initial encounter; Z87.891 Personal history of nicotine dependence; Z90.710 Acquired absence of both cervix and uterus; Z90.49 Acquired absence of other specified parts of digestive tract; Z68.31 Body mass index [BMI] 31.0-31.9, adult; Z88.0 Allergy status to penicillin; Y93.89 Activity, other specified; Y92.89 Other specified places as the place of occurrence of the external cause; Y99.8 Other external cause status
CPT/HCPCS: 36415; 73560; 73562; 76000; 80048; 80053; 82306; 82962; 85025; A7015; C1713; J1100; J1650; J1815; J2001; J2250; J2270; J2405; J2704; J3010; J3490; J7120; Q0162; 97116; 97535; 99285-25